=== PATIENT | female | born 1945 | race Caucasian/White ===

== ENCOUNTER 2017-02-13 15:02 | Inpatient (IN) | payer MEDICARE, OTHER ==
[~2017-02-13] VITALS: Ht 162.6 cm; Wt 53.1 kg
--- NOTE | ~2017-02-13 | CON ---
PATIENT'S NAME: KILO SANTILLAN [facility] AGE: 71 Y [address] ROOM: [place] [address] LOCATION: GICU ADMIT DATE: 02/13/2017 Consultation DISCHARGE DATE: FAMILY PHYSICIAN: Gloria Morton APRN ATTENDING PHYSICIAN: ANNA BILL REFERRING PHYSICIAN: Arun Patel MD Consult for Dr. Bill. This 71-year-old lady is referred for rehab/GIRP evaluation, admitted on 02/13/2017 with sudden onset of left-sided weakness with slurring of speech on the day that her while she was in the bathroom. She was evaluated at the local hospital. CT scan of the brain showed a large right-sided basal ganglia hemorrhage, intraparenchymal bleeding and repeated CT scan on admission here to hospital showed slight increase in the size of intracranial bleed, but without evidence of uncal herniation or brainstem compression. No intraventricular hemorrhage. Last CT scan of brain on 02/14/2017, showed stable right basal ganglia hemorrhage with slight increase in the effacement of right lateral ventricle in comparison to 02/13/2017 CT scan. Now, she can open her eyes to verbal command; however, she is immediately closing her eyes and going back to sleep, severely neglecting left side visual field. She has left facial droop. Tongue and soft palate are moving well; however, left side movement is slightly slower in tongue movement. Voice is clear and not wet at the present time, but slow in her response. As I mentioned, she is severely neglecting left side and always turns to the right side immediately. She is at the present time with vital signs that are stable, please refer to vital signs per nursing. She is with a Bhatt catheter. On intensive care unit and she is monitored closely. Chest is clear. Heart regular sinus rhythm. Abdomen soft. Urine output is clear at the present time. She has also numbness and complete flaccid left upper and lower extremities. PATIENT'S NAME: KILO SANTILLAN [facility] AGE: 71 Y [address] ROOM: [place] [address] LOCATION: [facility] ADMIT DATE: 02/13/2017 Consultation DISCHARGE DATE: FAMILY PHYSICIAN: Gloria Morton APRN ATTENDING PHYSICIAN: ANNA BILL MEDS: She is on the following medications. 1. NaCl 0.9%. 2. Protonix. 3. Albuterol. 4. Mannitol 20% q.4 hours 500 mL. 5. Apresoline. 6. Lipitor. 7. Tylenol. 8. KCl. ASSESSMENT AND PLAN: We will continue her on PT, OT, speech, please see the orders and we will brace her as necessary. We will do electrical stimulation as necessary for specific a muscle groups, and at the present time, she will be on bedside therapy. I will follow on her regularly, and when stable, provided she is okayed by the admitting surgeon, I will be happy to take her for intensive rehabilitation for about 4 weeks or so aiming to discharge home at modified independence. All the above was explained to her daughter and her grandson. They verbalized understanding and agreement. Thank you for this referral. I will be following alongside with you. MD GUERA PICKARD/modl /[id number] d: 02/15/17 1849 t: 02/16/17 0808, CONSULTATION REPORT
--- NOTE | ~2017-02-13 | HP ---
[facility] 71 Y [address] ROOM: [place] [address] LOCATION: [facility] ADMIT DATE: 02/13/2017 History & Physical DISCHARGE DATE: FAMILY PHYSICIAN: PHYSICIAN, UNKNOWN ATTENDING PHYSICIAN: ANNA CARL DATE OF SERVICE: 02/13/2017 CHIEF COMPLAINT: Right basal ganglia intraparenchymal hemorrhage, left-sided weakness. HISTORY OF PRESENT ILLNESS: The patient is a 71-year-old female, who unfortunately lost her today, was found by her family in the bathroom to have slurred speech and left-sided weakness. S was called and the patient was taken to [facility] where she was stabilized and investigated. Noncontrast CT of the head revealed large right basal ganglia intraparenchymal hemorrhage. I was contacted and discussed the case with Dr. Wise. I recommended transferring the patient over for further investigations, observation, and possible surgical intervention. I also recommended intubating the patient for the transfer. I met the patient in the intensive care unit. The patient was intubated and partially sedated. The history was confirmed from the referral papers. The rest of the history of present illness is limited due to the patient's intubation and sedation. PAST MEDICAL AND SURGICAL HISTORY: Unobtainable given the patient's level of consciousness. MEDICATIONS: Unobtainable given the patient's intubation and level of consciousness. ALLERGIES: UNKNOWN. REVIEW OF SYSTEMS: Unobtainable given the patient's intubation and level of consciousness. FAMILY HISTORY: Unobtainable given the patient's level of consciousness. SOCIAL HISTORY: The patient lives in [place]. PATIENT'S NAME: KILO SANTILLAN [facility] AGE: 71 Y [address] ROOM: [place] [address] LOCATION: [facility] ADMIT DATE: 02/13/2017 History & Physical DISCHARGE DATE: FAMILY PHYSICIAN: PHYSICIAN, UNKNOWN ATTENDING PHYSICIAN: ANNA CARL PHYSICAL EXAMINATION: GENERAL: The patient was intubated and partially sedated. She was examined in the intensive care unit. VITAL SIGNS: Systolic blood pressure was less than 150. HEENT: Head, no signs of external head trauma. Pupils were 3 mm and reactive. Sclera examination was normal. NECK: No palpable masses. GAIT: Not done. NEUROLOGIC: The patient was intubated and partially sedated. There was no eye opening to verbal or painful stimulus. The patient was spontaneously moving the right upper and lower extremities. She also obeyed simple commands on the right hand and foot. She had dense left arm and leg weakness. The pupils were 3 mm and reactive. RESPIRATORY: The patient was ventilated. CARDIOVASCULAR: She had palpable pulses on the upper extremities. INVESTIGATIONS: Noncontrast CT of the head done in [place] at 01:45 p.m. It showed evidence of large right basal ganglia intraparenchymal hemorrhage measuring about 5 x 2 cm. The hemorrhage is causing mass effect on the ipsilateral lateral ventricle and the sylvian fissure. The basal cisterns are patent. No evidence of intraventricular hemorrhage. Noncontrast CT of the head repeated at our hospital on the patient's arrival. It showed slight increase in the size of the hemorrhage, but without evidence of uncal herniation or brainstem compression. No evidence of intraventricular hemorrhage. The patient has generalized brain atrophy involving the frontal and parietal lobes with very large subarachnoid spaces. IMPRESSION: This 71-year-old female patient has right basal ganglia intraparenchymal hemorrhage. Based on the location of the hemorrhage, patient's age, this hemorrhage is most likely hypertension related. The patient's imaging showed large basal ganglia hemorrhage, but with no evidence of uncal herniation or intraventricular hemorrhage. There is minimal right to left midline shift. The patient's neurological examination is limited due to sedation, but she obeyed commands on the right upper and lower extremities and the pupils were equal and reactive. PLAN: 1. Admission to the intensive care unit. 2. Involvement of neuro fruit loader machine operator for medical management. 3. Repeat noncontrast CT of the head on February 14, 2017, to reassess the hemorrhage. 4. Control blood pressure, systolic blood pressure less than 150. PATIENT'S NAME: KILO SANTILLAN [facility] AGE: 71 Y [address] ROOM: [id number] [place], [place] [address] LOCATION: [facility] ADMIT DATE: 02/13/2017 History & Physical DISCHARGE DATE: FAMILY PHYSICIAN: PHYSICIAN, UNKNOWN ATTENDING PHYSICIAN: ANNA CARL 5. Keep the sodium within normal limit. I discussed the situation with the neuro fruit loader machine operator and the patient's son (Madan) and the patient's daughter (Michelle). I discussed the imaging, the patient's neurological examination. I also discussed the natural history of basal ganglia hemorrhages. I clearly indicated that given the significant brain atrophy and the absence of uncal herniation and the reassuring physical examination, surgical intervention is not required at this point. I recommended medical management for now. I clearly indicated that repeat imaging will be done tomorrow and after a few days. If the patient's neurological examination changes and the imaging shows significant edema and brainstem compression, then surgical evacuation will be an option. I also discussed long-term treatment post intracerebral hemorrhages. I clearly indicated that the patient will require inpatient rehab and probably prison upon discharge. The family understood those concerns and treatment plan. They were agreeable on that. They asked appropriate questions and those were answered to their satisfaction. It was a pleasure taking care of this patient and thanks for having us involved. MD GRADY CARL/adam /[id number] CC: Steffanie Wise MD [facility] [address] [place] [address] D: [id number] T: 040 HISTORY & PHYSICAL
--- NOTE | ~2017-02-13 | ENPV ---
Vascular Lower Extremities DVT Study Procedure Demographics Patient Name KILO SANTILLAN Date of Study 02/15/2017 Patient Number [id number] Gender Female Date of 1945 Age 71 Visit Number [id number] Height Accession Number [id number] Weight Room Number G6213 BSA BMI Referring Amanda Wood MD Interpreting Luis Casarez MD Physician Physician Physician Ordering Physician Court Reporter Waterproofer Helper Mable Cooper [facility] Conclusions Summary Bilaterally Negative for DVT Procedure Type of Study: Veins:Lower Extremities DVT Study, Venous Duplex Lower Extremity Bilateral. Appropriate Use Criteria:7 Patient Status:Routine. Technical Quality:Adequate visualization. Velocities are measured in cm/s ; Diameters are measured in cm Right Lower Extremities DVT Study Measurements Right 2D and Doppler Measurements + + + + +------+------+ + !Location !Visualized!Compressibility!Thrombosis!Signal!Reflux!Reflux ! ! ! ! ! ! ! !(sec) ! + + + + +------+------+ + !GSV Thigh !Yes !Yes !None !Phasic!No ! ! + + + + +------+------+ + !Common !Yes !Yes !None !Phasic!No ! ! !Femoral ! ! ! ! ! ! ! + + + + +------+------+ + !Prox !Yes !Yes !None !Phasic!No ! ! !Femoral ! ! ! ! ! ! ! + + + + +------+------+ + !Mid Femoral!Yes !Yes !None !Phasic!No ! ! + + + + +------+------+ + !Dist !Yes !Yes !None !Phasic!No ! ! !Femoral ! ! ! ! ! ! ! + + + + +------+------+ + !Popliteal !Yes !Yes !None !Phasic!No ! ! + + + + +------+------+ + !Gastroc !Yes !Yes !None !Phasic!No ! ! + + + + +------+------+ + !PTV !Yes !Yes !None !Phasic!No ! ! + + + + +------+------+ + !Peroneal !Yes !Yes !None !Phasic!No ! ! + + + + +------+------+ + Left Lower Extremities DVT Study Measurements Left 2D and Doppler Measurements + + + + +------+------+ + !Location !Visualized!Compressibility!Thrombosis!Signal!Reflux!Reflux ! ! ! ! ! ! ! !(sec) ! + + + + +------+------+ + !GSV Thigh !Yes !Yes !None !Phasic!No ! ! + + + + +------+------+ + !Common !Yes !Yes !None !Phasic!No ! ! !Femoral ! ! ! ! ! ! ! + + + + +------+------+ + !Prox !Yes !Yes !None !Phasic!No ! ! !Femoral ! ! ! ! ! ! ! + + + + +------+------+ + !Mid Femoral!Yes !Yes !None !Phasic!No ! ! + + + + +------+------+ + !Dist !Yes !Yes !None !Phasic!No ! ! !Femoral ! ! ! ! ! ! ! + + + + +------+------+ + !Popliteal !Yes !Yes !None !Phasic!No ! ! + + + + +------+------+ + !Gastroc !Yes !Yes !None !Phasic!No ! ! + + + + +------+------+ + !PTV !Yes !Yes !None !Phasic!No ! ! + + + + +------+------+ + !Peroneal !Yes !Yes !None !Phasic!No ! ! + + + + +------+------+ + Impressions Right Impression Negative for DVT Left Impression Negative for DVT Signature dtt: GREER MUIR dtd: 02/15/17 0752 Physician Self Edradhika
--- NOTE | ~2017-02-13 | DS ---
PATIENT'S NAME: KILO SANTILLAN [facility] AGE: 72 Y [address] ROOM: [address] [address] LOCATION: [facility] ADMIT DATE: 02/13/2017 Discharge Summary DISCHARGE DATE: 02/24/2017 FAMILY PHYSICIAN: Gloria Morton APRN ATTENDING PHYSICIAN: Yousuf Bill ADMISSION MAIN DIAGNOSES: 1. Right basal ganglia hemorrhage. 2. Left-sided weakness. DISCHARGE MAIN DIAGNOSES: 1. Right basal ganglia hemorrhage. 2. Left-sided weakness. PROCEDURES DURING ADMISSION: None. COMPLICATION DURING ADMISSION: None. DISCHARGE INSTRUCTIONS AND FOLLOWUP APPOINTMENTS: 1. The patient will be transferred to inpatient rehab to continue physical therapy, occupational therapy, and speech therapy. 2. Call my office for any new neurologic symptoms/deficits. 3. Call my office to schedule an appointment prior to discharge from rehab. MEDICATIONS ON DISCHARGE: 1. Amlodipine 2.5 mg p.o. once daily. 2. Lovenox 30 mg subcu once daily. 3. Protonix 40 mg p.o. once daily. 4. Nystatin one million units p.o. four times a day. 5. [place] 5/325 one tab p.o. every 6 hours p.r.n. 6. Multivitamin mineral one tablet p.o. once daily. 7. Calcium with vitamin D ER tab one tab once daily p.o. 8. Vitamin B12, 1000 mcg p.o. once daily. HOSPITAL COURSE: The patient is a 72-year-old female patient, who was admitted to the hospital with main diagnosis of right basal ganglia hemorrhage. The patient is known to have hypertension. The patient was initially admitted to the intensive care unit. She was initially intubated and subsequently was extubated. The patient remained neurologically very well. The left-sided weakness slowly improved. The patient was followed by hospitalist for medical management. Her blood pressure was fairly controlled. The patient had a multiple followup noncontrast CT head, and those showed evolution of the right basal ganglia hemorrhage and no evidence of intraventricular hemorrhage or other hemorrhages. The patient was also seen by Physical Therapy, Occupational Therapy, and Physiatry. It was felt that this patient would benefit from inpatient rehab. PATIENT'S NAME: KILO SANTILLAN [facility] AGE: 72 Y [address] ROOM: [address] [address] LOCATION: [facility] ADMIT DATE: 02/13/2017 Discharge Summary DISCHARGE DATE: FAMILY PHYSICIAN: Gloria Morton APRN ATTENDING PHYSICIAN: Yousuf Bill On the day of discharge, the patient was examined. She remained neurologically well. The left-sided weakness was slowly improving. She was alert and oriented. I met the patient in the in the presence of her daughter. They both asked appropriate questions and those were answered to their satisfaction. The patient will be transferred to inpatient rehab today. MD GRADY CARL/adam /[id number] CC: MELVINA Aranda MD Jesse J Pandorf, MD W.M. Suleiman, MD d: 02/24/17 0351 t: 02/24/17 1134, DISCHARGE SUMMARY
--- NOTE | ~2017-02-13 | CON ---
PATIENT'S NAME: KILO SANTILLAN [facility] AGE: 71 Y [address] ROOM: [address] [place], [place] [address] LOCATION: GICU ADMIT DATE: 02/13/2017 Consultation DISCHARGE DATE: FAMILY PHYSICIAN: Gloria Morton APRN ATTENDING PHYSICIAN: ANNA CARL DATE OF CONSULTATION: 02/16/2017 REFERRING PHYSICIAN: Arun Patel MD CHIEF COMPLAINT/REASON FOR CONSULTATION: Medical management in the setting of right basal ganglia hemorrhage. HISTORY OF PRESENTING ILLNESS: This 71-year-old white female with previous history of tobacco use, but no other significant medical history, was admitted to [facility] on 02/13/2017 after being discovered by family, poorly responsive. She had apparently suffered the loss of her on the same day. She was taken to the [place] [facility] where imaging studies revealed the presence of a right basal ganglia hemorrhage. Neurosurgery was consulted by telephone, and she was transferred here for definitive evaluation and management. She was intubated, mechanically ventilated, and managed by the neurosurgical and neuro-intensive services. It was recommended for conservative care and careful blood pressure management. She did receive mannitol and p.r.n. hydralazine and labetalol. Ultimately, she was extubated, and her clinical condition has improved. She does have residual left-sided facial droop and left-sided arm and leg weakness. She has been receiving speech therapy evaluation and physical therapy and occupational therapy evaluations as of today. She has also been started on some oral antihypertensive therapy. Presently, she reports feeling "okay." She is drowsy, but arousable and able to answer questions appropriately. She did have some nausea after the amlodipine was started, and her grandson was concerned about that. She does not have any significant nausea now. She denies headache. Denies dizziness or lightheadedness. No significant chest pain, and denies feeling short of breath. She did stool earlier today and has been making adequate amounts of urine. She denies numbness or tingling in her extremities, but does notice weakness on her left side. She also has some visual field deficit on the left side. PAST MEDICAL HISTORY: ALLERGIES: NO KNOWN DRUG ALLERGIES. ILLNESSES: PATIENT'S NAME: KILO SANTILLAN [facility] AGE: 71 Y [address] ROOM: [id number] [place], [place] [address] LOCATION: [facility] ADMIT DATE: 02/13/2017 Consultation DISCHARGE DATE: FAMILY PHYSICIAN: Gloria Morton APRN ATTENDING PHYSICIAN: ANNA CARL Tobacco use. CURRENT MEDICATIONS: 1. Amlodipine 2.5 mg p.o. daily. 2. [place] 5/325 one tablet p.o. q.6 hours p.r.n. 3. Protonix 40 mg IV q.24 hours. 4. Hydralazine 10 mg IV q.2 hours p.r.n. systolic greater than 150. 5. Labetalol 5 to 10 mg IV q.10 minutes p.r.n. systolic greater than 150. 6. Acetaminophen 650 mg p.o. or p.r. q.4 hours p.r.n. pain or fever. FAMILY HISTORY: Negative for heart attack or stroke. SOCIAL HISTORY: She is recently . She lives in [facility]. She has a son and daughter who live in [place] and provide some social assistance. She does have a history of intermittent tobacco use, 5- to 10- pack-year history. Occasional alcohol use. REVIEW OF SYSTEMS: As per HPI. All other organ systems reviewed and are negative. PHYSICAL EXAMINATION: VITAL SIGNS: Temperature 97.9, pulse 71, respirations 21, blood pressure 138/50, and O2 saturation 94% on room air. Weight is 48.1 kg. GENERAL: She is frail, but not ill-appearing. Lying in the bed. Somnolent, but arousable. In no acute distress. She is oriented x2 (not oriented to time). SKIN: Supple, pink, warm, and dry. No obvious rashes. HEENT: Otherwise, normocephalic. Sclerae are nonicteric. Pupils equal and round, slow to react to light. Extraocular movements demonstrate left-sided neglect. Oropharynx is clear. Mucous membranes are pink and moist. NECK: Supple. No masses or adenopathy. No thyromegaly. No JVD. CHEST WALL: Symmetrical. HEART: Regular with occasional extrasystoles. There is a grade 1 to 2 out of 6 systolic ejection murmur. LUNGS: Diminished at the bases with long expiratory phase. No christa wheezes. No areas of consolidation. ABDOMEN: Soft and nontender. Bowel sounds present. No masses or hepatosplenomegaly. GENITOURINARY: Not done. RECTAL: Not done. EXTREMITIES: Display no significant clubbing, cyanosis, or edema. NEUROLOGICAL: Cranial nerves 2 through 12 demonstrate left-sided visual neglect as described above. There is a left facial droop. Strength is 4/5 in PATIENT'S NAME: KILO SANTILLAN [facility] AGE: 71 Y [address] ROOM: [address] [place], [place] [address] LOCATION: [facility] ADMIT DATE: 02/13/2017 Consultation DISCHARGE DATE: FAMILY PHYSICIAN: Gloria Morton APRN ATTENDING PHYSICIAN: ANNA CARL the right upper and right lower extremities, 3/5 in the left upper and left lower extremities. DTRs 0 to 1+ on the right and 1+ on the left. Sensation appears intact. Gait is not observed. LABORATORY AND X-RAY DATA: CBC showed a white blood cell count of 9.0, hemoglobin is 10.8, hematocrit 32.1, and platelets 174. Chemistries revealed BUN and creatinine 12 and 0.5 respectively, sodium and potassium 137 and 3.4, chloride and CO2 were 106 and 22, calcium was 8.2. AST and ALT 24 and 20 respectively. Bilirubin was 0.3. Glucose was minimally abnormal at 105. Albumin was a little low at 3.1. Chest x-ray showed no acute cardiopulmonary abnormalities. CT scan on 02/14/2017 showed a right basal ganglia hemorrhage, stable from prior. ASSESSMENT AND PLAN: 1. Essential hypertension, controlled on amlodipine. Plan to continue with the oral amlodipine and careful fluid volume management. We will aim for goal systolic blood pressure less than 150 and close clinical followup. 2. Hypokalemia. We will replace with some enteral potassium today. 3. Dysphagia. Continue to work with speech therapy. 4. Moderate protein-calorie malnutrition. We will try to advance her diet carefully and encourage balanced intake. 5. Right basal ganglia hemorrhage with dysphagia, left-sided neglect, and left-sided arm and leg weakness. Plan to continue with physical therapy, occupational therapy, and restorative cares. The goal will be to go to rehab for an extended period. 6. Acute grief reaction. We will need to monitor this closely. It is difficult to assess in the current setting. She might benefit from SSRI therapy. Encourage close spiritual and emotional support by family and friends. 7. Tobacco use. Currently, no concerns. We will offer nicotine supplementation if she desires. 8. Deep venous thrombosis prophylaxis. We will use pneumatic compression devices, but hold off on heparin or Lovenox in light of the intracranial hemorrhage as above. MD SILVIA CLAYTON/adam /[id number] d: 02/16/171421 t: 02/16/171957, CONSULTATION REPORT
--- NOTE | ~2017-02-13 | CON ---
PATIENT'S NAME: KILO [facility] AGE: 71 Y [address] ROOM: [place] [address] LOCATION: GICU ADMIT DATE: 02/13/2017 Consultation DISCHARGE DATE: FAMILY PHYSICIAN: PHYSICIAN, UNKNOWN ATTENDING PHYSICIAN: ANNA BILL DATE OF CONSULTATION: 02/13/2017 REFERRING PHYSICIAN: Mayur Patel MD CHIEF COMPLAINT: Intensive management for a right basal ganglia, hemorrhagic bleed. HISTORY OF PRESENT ILLNESS: The patient presented this morning at [place] with altered mental status and weakness on her left side. Apparently, went into the bathroom about 11 o'clock and about an hour later, family came to check on her. Needed some help and had fallen. Could not get up. On EMS arrival, the patient had alert speech with facial droop on the left, left arm paralysis, and left leg weakness. She had a right gaze deviation. She was taken to the emergency room in [place] and was found to have this hemorrhagic stroke and was then transferred to [facility]. Also, this morning, her and this was following a week plus ICU stay in [place] with pneumonia, I believe to be associated with his chemotherapy for lung cancer. PAST MEDICAL HISTORY: Taken from the family and they are not aware of any medications or illnesses or surgeries that she has had. SOCIAL HISTORY: She has some occasional smoking and drinking. She is retired and lived independently at home. ALLERGIES: NONE. REVIEW OF SYSTEMS: Unobtainable. PHYSICAL EXAMINATION: VITAL SIGNS: Blood pressure is 114/60, heart rate was 72, oxygenation is 100%. GENERAL: She is intubated, responsive, in bed. HEAD: Normocephalic, atraumatic. Pupils were equal, reactive to light. NECK: Trachea is midline. PATIENT'S NAME: KILO SANTILL[facility] AGE: 71 Y [address] ROOM: [address] [address] LOCATION: GICU ADMIT DATE: 02/13/2017 Consultation DISCHARGE DATE: FAMILY PHYSICIAN: PHYSICIAN, UNKNOWN ATTENDING PHYSICIAN: ANNA BILL CHEST: Clear to auscultation bilaterally. Regular rate and rhythm. ABDOMEN: Soft, nondistended, and positive bowel sounds x4 quadrants. EXTREMITIES: No clubbing, cyanosis, or edema was noted. SKIN: Appeared to be intact. NEUROLOGIC: She followed commands on the right side, unable to follow commands on the left. She is able to nod her head, cough, gag. Is midline. LABORATORY DATA: Fairly unremarkable with hemoglobin 13, hematocrit 41. Sodium was 133, potassium 4, creatinine 7. The platelets 240, glucose in [place] that was 142. RADIOLOGY: Showed a 5 x 2.5 cm parenchymal hemorrhage in the right basal ganglia, most consistent with a hemorrhagic stroke. The repeat scan done at [facility] showed one that was slightly larger. ASSESSMENT: A 71-year-old female with a right basal ganglia, hemorrhage bleed. The patient has no other past medical history that we are aware of. PLAN: Going to recheck a head CT in the a.m. for any changes or any acute neuro status changes. Dr. Bill discussed conservative management versus operative care with the family and at this point, we are going to go with medical management. 1. Blood pressure control. Use labetalol and hydralazine at this point to maintain a systolic blood pressure less than 150. 2. Acute respiratory failure. Apparently, her GCS in [place] was about 10. They put in an ET tube for transport. She follows commands. Had a vital capacity of 1550. NIF negative 26, positive good cough, good NIF. So we will exacerbate the patient. 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 3. Mildly hyponatremic. We are going to recheck the labs. I will give her a 150 mg of 3% sodium chloride. 4. Hyperglycemia. She has no history of diabetes. We will check another blood sugar at a sliding scale as needed. This could just be a stress response in [place]. 5. Prophylaxis. Start a proton pump inhibitor. Have sequential compression devices, TEDs. There is no anticoagulation at this time. She will be in bed rest with the head up about 30 degrees. Discussed treatment options with the family at the bedside. All questions answered and addressed. Did say that there could be more bleeding. There could have worsening of secondary injury that may require surgery or re-intubation in the future. Discussed the DNR/DNI status and any options of living will. PATIENT'S NAME: KILO [facility]ILL[facility] AGE: 71 Y [address] ROOM: [id number] [place] [id number] LOCATION: [facility] ADMIT DATE: 02/13/2017 Consultation DISCHARGE DATE: FAMILY PHYSICIAN: PHYSICIAN, UNKNOWN ATTENDING PHYSICIAN: ANNA BILL Family was uncertain of any of her wishes at this time and will re-evaluate and back to us regarding this if needed in the future. Critical care time at bedside and discussion with family was approximately 75 minutes. MAYUR PATEL MD JJP/modl /[id number] d: 02/14/17 0001 t: 02/18/17 1218, CONSULTATION REPORT
--- NOTE | 2017-02-13 17:18 | NUR ---
Patient direct admit from [facility], ICU nursing staff & RT met flight in [place]. Patient flaccid on the left side, purposeful and follows commands to R) upper and lower ext. Pupils equal and reactive. SR-mirta, we are to keep SBP <150, has been 130-170s. Remains on A/C, FiO2 40%, lung sounds slightly coarse throughout. Bowels hypoactive, OG LIS. Hbatt patent. PIV x2, R)FA and R)AC. Dr Bill at bedside upon arrival to ICU, plans for CT in AM and will reassess possible need for evac
--- NOTE | 2017-02-14 05:34 | NUR ---
Significant Event: Pt is drowsy, but is easily arousable. Oriented x3. Pupils are equal and reactive. L) sided facial droop. NIHSS score of 15. Moves R) upper and lower extremity spontaneously and to command. L) lower extremity able to wiggle toes. Able to lift the L) upper extremity does not wiggle fingers. Extubated at 1805, and is now on room air. Bhatt cath in place with adequate urine output. No BM this shift. [address] Follow up: Continue to monitor Neuro status. CT at 1000 today.
[2017-02-14 06:04] LABS: BASOPHIL % 0.5 %; EOSINOPHIL # 0.1 K/uL (0.0-0.5); EOSINOPHIL % 0.9 %; HEMATOCRIT 34.4 % (33.0-46.0); HEMOGLOBIN 11.6 g/dL (10.0-15.0); IMMATURE GRANULOCYTE % 0.4 %; LYMPHOCYTE # 2.1 K/uL (0.8-4.0); LYMPHOCYTE % 24.2 %; MCH 32.6 pg (27.0-34.0); MCHC 33.7 gm/dL (32.0-36.5); MCV 96.6 fl (83.0-98.0); MONOCYTE # 1.1 K/uL (0.0-1.0); MONOCYTE % 12.5 %; MPV 9.9 fl (9.4-12.4); NEUTROPHIL # (ANC) 5.2 K/uL (1.8-7.8); NEUTROPHIL % 61.5 %; NRBC % 0 /100WBC (0-0.00); PLATELET COUNT 207 K/uL (150-450); RBC 3.56 M/uL (3.50-5.50); RDW-CV 12.2 % (11.9-14.6); WBC 8.5 K/uL (4.0-11.0)
[2017-02-14 06:24] LABS: ALBUMIN 3.3 gm/dL (3.5-5.0); ALK PHOS 50 IU/L (33-138); ALT 20 IU/L (12-78); ANION GAP 10.6 (10.0-19.0); AST 23 IU/L (10-40); BLOOD UREA NITROGEN 13 mg/dL (6-24); CALCIUM 8.4 mg/dL (8.5-10.5); CHLORIDE 107 mMol/L (96-110); CO2 26 mMol/L (22-32); CREATININE 0.6 mg/dL (0.5-1.1); ESTIMATED GFR (MDRD EQUATION) > 60; POTASSIUM 3.6 mMol/L (3.7-5.1); SODIUM 140 mMol/L (135-145); TOTAL BILIRUBIN 0.4 mg/dL (0.0-1.5); TOTAL PROTEIN 6.1 g/dL (6.0-8.4)
[2017-02-14] MEDS ORDERED: CALCIUM + D3 E1 EACH PO (10:00)
[2017-02-14] MEDS ORDERED: THERAGRAN-M1 TAB PO (10:00)
[2017-02-14] MEDS ORDERED: VITAMIN C500 M1 PO (10:01)
[2017-02-14] MEDS ORDERED: VITAMIN B-121000 MCG PO (10:01)
[2017-02-14] MEDS ORDERED: ALEVE220 MG PO (10:01)
[2017-02-14] MEDS ORDERED: FLONASE 50 MCG/16 GM NOSE (10:02)
[2017-02-14] MEDS ORDERED: ALAVERT10 MG PO (10:03)
--- NOTE | 2017-02-14 15:14 | NUR ---
Significant Event: Patient had a CT scan this shift. Remains unchanged from previous. No c/o pain/discomfort. UP to chair with 2 assist. MD wants patient to be ICU status with neuros every 2 hours today, and can transfer tomorrow if remains stable. PT/OT/SP thearpy today, plan for Dr. Sultana consult in AM. Bhatt draining yellow marignal urine. Follow up:
--- NOTE | 2017-02-15 04:48 | NUR ---
Significant Event: Patient AOx3. NIHSS 12. Improved throughout shift. Able to lift L)arm and leg off bed with drift. Follows commands without difficulty on R)extremeties. L)facial droop noted. L)neglect. Pupils equal and reactive. Speech slightly slurred. SR, BP stable labetolol given x2, hydralazine x1 for SBP >150. On room air. Bowel sounds active, no bm this shift. Bhatt intact, adequate UOP. No new or worsening skin issues. Stand and pivot well with 2A and gait belt. Afebrile. PIVx2 intact. Follow up: Status change?
[2017-02-15 05:27] LABS: BASOPHIL # 0.1 K/uL (0.0-0.2); BASOPHIL % 0.6 %; EOSINOPHIL # 0.1 K/uL (0.0-0.5); EOSINOPHIL % 1.1 %; HEMATOCRIT 34.8 % (33.0-46.0); IMMATURE GRANULOCYTE % 0.4 %; LYMPHOCYTE # 1.7 K/uL (0.8-4.0); LYMPHOCYTE % 20.6 %; MCH 33.1 pg (27.0-34.0); MCHC 34.5 gm/dL (32.0-36.5); MCV 96.1 fl (83.0-98.0); MONOCYTE # 0.8 K/uL (0.0-1.0); MONOCYTE % 9.7 %; NEUTROPHIL # (ANC) 5.6 K/uL (1.8-7.8); NEUTROPHIL % 67.6 %; NRBC % 0 /100WBC (0-0.00); PLATELET COUNT 195 K/uL (150-450); RBC 3.62 M/uL (3.50-5.50); RDW-CV 12.4 % (11.9-14.6); WBC 8.3 K/uL (4.0-11.0)
[2017-02-15 05:42] LABS: ALBUMIN 3.2 gm/dL (3.5-5.0); ALK PHOS 52 IU/L (33-138); ALT 20 IU/L (12-78); ANION GAP 11.2 (10.0-19.0); AST 22 IU/L (10-40); BLOOD UREA NITROGEN 12 mg/dL (6-24); CALCIUM 8.2 mg/dL (8.5-10.5); CHLORIDE 107 mMol/L (96-110); CO2 25 mMol/L (22-32); CREATININE 0.5 mg/dL (0.5-1.1); ESTIMATED GFR (MDRD EQUATION) > 60; POTASSIUM 3.2 mMol/L (3.7-5.1); SODIUM 140 mMol/L (135-145); TOTAL PROTEIN 6.2 g/dL (6.0-8.4)
[2017-02-15 05:44] LABS: TOTAL BILIRUBIN 0.3 mg/dL (0.0-1.5)
--- NOTE | 2017-02-15 17:35 | NUR ---
Significant Event: PT ALERT AND ORIENTED X3. PERRLA. NIH-SS WAS A 9 THIS SHIFT. HAS SOME EFFORT AGAINST GRAVITY TO L)ARM; ABLE TO RAISE L)LEG; L)FACIAL DROOP; L)SIDED NEGLECT. SPEECH SLIGHTLY SLURRED/MUMBLED. Q2H NEURO CHECKS-HAVE REMAINED STABLE ALL SHIFT. TRANSFERS WITH 2-ASSIST/HEAVY PIVOT. HAS BEEN UP IN THE CHAIR MOST OF THE DAY. TURN Q2H. BAG BATH GIVEN THIS MORNING. BRADYCARDIA AT TIMES WITH RATES IN THE 50'S. ORDER TO KEEP SBP <150. PRN IV HYDRALAZINE GIVEN AT 1504 AND PRN IV LABETOLOL GIVEN AT 1603. PO NORVASC STARTED TODAY. TAKES MEDICATIONS WHOLE WITH WATER. HAS COMPLAINED OF A SLIGHT R)TEMPORAL HEADACHE; 1 NORCO GIVEN AT 1504, WITH RELIEF. PUREED DIET WITH NECTAR THICKENED LIQUIDS; PT IS A 1:1 FEEDER AND DOES POCKET ON THE L)SIDE. ESPINOZA PATENT, DRAINING YELLOW URINE. XL FORMED BM PER COMMODE THIS AFTERNOON. IV TO R)FA INFUSING NS AT 70 ML/HR. K+ LEVEL WAS 3.2 THIS AM; 40 MEQ IV KCL X1 CURRENTLY INFUSING. FAMILY HAS BEEN AT BEDSIDE ALL SHIFT. Follow up: CHANGE TO NTU STATUS TOMORROW?
--- NOTE | 2017-02-16 05:13 | NUR ---
Oriented x3. No noteable increase in L) sided strength. Labetolol and Hydralazine pushes given during shift for SBP >150. Follow up: Continue with Speech, PT/OT
[2017-02-16 05:18] LABS: BASOPHIL % 0.2 %; EOSINOPHIL % 0.1 %; HEMATOCRIT 32.1 % (33.0-46.0); HEMOGLOBIN 10.8 g/dL (10.0-15.0); IMMATURE GRANULOCYTE % 0.3 %; LYMPHOCYTE # 1.7 K/uL (0.8-4.0); LYMPHOCYTE % 18.5 %; MCH 33.1 pg (27.0-34.0); MCHC 33.6 gm/dL (32.0-36.5); MCV 98.5 fl (83.0-98.0); MONOCYTE # 0.8 K/uL (0.0-1.0); MONOCYTE % 8.7 %; MPV 10.2 fl (9.4-12.4); NEUTROPHIL # (ANC) 6.5 K/uL (1.8-7.8); NEUTROPHIL % 72.2 %; NRBC % 0 /100WBC (0-0.00); PLATELET COUNT 174 K/uL (150-450); RBC 3.26 M/uL (3.50-5.50); RDW-CV 12.7 % (11.9-14.6)
[2017-02-16 05:29] LABS: ALBUMIN 3.1 gm/dL (3.5-5.0); ALK PHOS 46 IU/L (33-138); ALT 20 IU/L (12-78); ANION GAP 12.4 (10.0-19.0); AST 24 IU/L (10-40); BLOOD UREA NITROGEN 12 mg/dL (6-24); CALCIUM 8.2 mg/dL (8.5-10.5); CHLORIDE 106 mMol/L (96-110); CO2 22 mMol/L (22-32); CREATININE 0.5 mg/dL (0.5-1.1); ESTIMATED GFR (MDRD EQUATION) > 60; POTASSIUM 3.4 mMol/L (3.7-5.1); SODIUM 137 mMol/L (135-145); TOTAL BILIRUBIN 0.3 mg/dL (0.0-1.5); TOTAL PROTEIN 6.1 g/dL (6.0-8.4)
[2017-02-16 11:17] LABS: INR - (THERAPEUTIC) 1.01 (0.92-1.07); PROTIME 10.6 SECONDS (9.8-11.4)
[2017-02-16 12:26] LABS: BILIRUBIN URINE NEGATIVE (NEGATIVE); BLOOD URINE 50 /UL (NEGATIVE); COLOR URINE YELLOW (YELLOW); GLUCOSE URINE NEGATIVE (NEGATIVE); KETONE URINE 5 mg/dL (NEGATIVE); LEUKOCYTES URINE 25 /UL (NEGATIVE); NITRITE URINE NEGATIVE (NEGATIVE); PROTEIN URINE NEGATIVE (NEGATIVE); SPEC GRAVITY URINE 1.025 (1.003-1.035); TURBIDITY URINE CLEAR (CLEAR); UROBILINOGEN URINE NORMAL (NORMAL)
[2017-02-16 12:41] LABS: BACTERIA URINE RARE (NEGATIVE); EPITHELIAL URINE 0-2 #/HPF (NEGATIVE); MUCUS URINE 2+ (NEGATIVE)
--- NOTE | 2017-02-16 15:14 | NUR ---
Introduced self and role of care mangement to pt and her grandson Marlo, his mother is Michelle pt's daughter. Marlo stated pt lives up by [place] but doctors in [place] and her 3 kids are living there as well. I explained to pt and grandson that I can come back when more family is here but I assist with the dc plans when that time come and looking at rehab facilities and can look wherever pt would like from here, [facility] [place]. Marlo states his mom is coming later but he thinks they are wanting her to stay her for rehab. I will try to stop by when more family is here and left my name with Marlo. I did speak with Gilda regarding pt and thinks that she would be a good candiate.
--- NOTE | 2017-02-16 17:26 | NUR ---
Significant Event: Patient is alert and oriented X3. She answers all questions with a little delay and speech is slurred. She follows all commands correctly. She is still a lot weaker on the left side, but she made big improvements throughout the day. She is tolerating her pureed diet well and takes pills without any problems. NS continues at 70ml/hr and trying to get her to drink more water. Urine output was marginal. Follow up: Transfer to NTU
[2017-02-17 05:23] LABS: BASOPHIL # 0.1 K/uL (0.0-0.2); BASOPHIL % 0.7 %; EOSINOPHIL # 0.1 K/uL (0.0-0.5); EOSINOPHIL % 1.8 %; HEMATOCRIT 31.6 % (33.0-46.0); HEMOGLOBIN 10.7 g/dL (10.0-15.0); IMMATURE GRANULOCYTE % 0.4 %; LYMPHOCYTE # 2.1 K/uL (0.8-4.0); LYMPHOCYTE % 31.2 %; MCH 33.1 pg (27.0-34.0); MCHC 33.9 gm/dL (32.0-36.5); MCV 97.8 fl (83.0-98.0); MONOCYTE # 0.7 K/uL (0.0-1.0); MPV 10.1 fl (9.4-12.4); NEUTROPHIL # (ANC) 3.7 K/uL (1.8-7.8); NEUTROPHIL % 54.9 %; NRBC % 0 /100WBC (0-0.00); PLATELET COUNT 159 K/uL (150-450); RBC 3.23 M/uL (3.50-5.50); RDW-CV 12.6 % (11.9-14.6); WBC 6.7 K/uL (4.0-11.0)
--- NOTE | 2017-02-17 05:36 | NUR ---
patient is sleepy but easily awake,will follow simple commands,weakness on the lt side of the body with droop to lt side,clear upper lungs sound diminished on the bases,on room air rr=20,m0jcg=29% follow up:continue to monitor patient's neuro status closely,ct head on A.M
[2017-02-17 11:38] LABS: ALBUMIN 3.2 gm/dL (3.5-5.0); ALK PHOS 48 IU/L (33-138); ALT 23 IU/L (12-78); ANION GAP 12.8 (10.0-19.0); AST 25 IU/L (10-40); BLOOD UREA NITROGEN 11 mg/dL (6-24); CALCIUM 8.3 mg/dL (8.5-10.5); CHLORIDE 106 mMol/L (96-110); CO2 24 mMol/L (22-32); CREATININE 0.6 mg/dL (0.5-1.1); ESTIMATED GFR (MDRD EQUATION) > 60; POTASSIUM 3.8 mMol/L (3.7-5.1); SODIUM 139 mMol/L (135-145); TOTAL PROTEIN 6.4 g/dL (6.0-8.4)
[2017-02-17 11:41] LABS: TOTAL BILIRUBIN 0.5 mg/dL (0.0-1.5)
--- NOTE | 2017-02-17 14:34 | NUR ---
Introduced myself and role of care management this am to daughter Michelle and son and daughter in law. I did discuss regarding dc plans and rehab and what it was and entailed. I gave options of where I could look and daughter states there is not a place in [place]. I explained no they are only skilled care and explained acute rehab and 3 hours of therapy and I did stated they all can meet her needs the rehabs. I did tell them where [facility] was located and welcomed to go visit. They are wanting mom to stay here. I explained I am not sure when she will be ready but there are beds available. I did talk with Gilda and maybe thinking Wednesday but will touch base with her tomorrow and she may come over and visit family as well. WIll continue to follow.
--- NOTE | 2017-02-18 02:22 | NUR ---
patient arrived to unit at 1845 per bed accompanied by OPEN CUT EXAMINER Georgina and family. Patient is alert and oriented x3. No edema. Afebrile. Appetite is fair. Bowel are active-last Bm 02/16. Bhatt catheter. Skin-has small superficial open area to right upper buttocks. Vitals and neuro q4h. Follows commands. Left sided facial droop. Left sided weakness. Slurred speech. Puree diet with nectar thick liquids. 2A pivot or full lift. TQ2H. Left foot drop boot. PIV to left posterior FA with NA at 70. Monitor NA+ levels. Received report from ICU nurse Georgina. VSS. NIHSS-7.
[2017-02-18 05:31] LABS: ANION GAP 11.3 (10.0-19.0); BLOOD UREA NITROGEN 9 mg/dL (6-24); CALCIUM 7.9 mg/dL (8.5-10.5); CHLORIDE 108 mMol/L (96-110); CO2 23 mMol/L (22-32); CREATININE 0.4 mg/dL (0.5-1.1); ESTIMATED GFR (MDRD EQUATION) > 60; POTASSIUM 3.3 mMol/L (3.7-5.1); SODIUM 139 mMol/L (135-145)
--- NOTE | 2017-02-18 07:45 | NUR ---
Significant Event: PATIENT IS ALERT AND ORIENTED X3. FOLLOWS COMMANDS. DENIES JIMENEZ, PAIN, N/T. PERRLA. KEEP HOB GREATER THAN 30. L) FACIAL DROOP, L) SLIGHT HAND GRASP, L) LEG DRIFT AND WEAK. SINUS RHYTHM TO CATHERINE. 2+ PULSES-1+ EDEMA TO LEFT HAND. KEEP SBP LESS THAN 150. ROOM AIR-CLEAR. PUREE DIET WITH NECTAR THICKENED LIQUIDS. 1:1 FEEDER. 2A FULL LIFT OR PIVOT. R) FA WITH NS AT 70. TAKES PILLS ONE AT A TIME WITH THICKENED WATER. LAST BM 02/15-BOWELS ARE ACTIVE. ESPINOZA CATHETER-800 OUT. MONITOR SODIUM LEVELS-CALL BADER IF IT IS LESS THAN 135. L) FOOT DROP BOOT. TURN Q2H. Follow up: TO GIRP WHEN READY.
--- NOTE | 2017-02-18 09:08 | NUR ---
A - PT SCREENED D/T LOS. S/P STROKE. 1:1 @ MEALS. HT: 64" WT: 113# (02/18), 108# (02/17). BMI: 19.5. LABS: ACCUCHECK WNL, K+ 3.3, BUN/CR 9/0.4, ALB 3.2, PREALB 19. MEDS: PROTONIX, IVF. DIET: PUREED, NECTAR LIQUIDS. INTAKE: 25-50%. NEEDS: 0501-0038 KCAL (28-33 KCAL/KG), 51-61 G PRO (1-1.2 G/KG), 1530 ML FLUID (30 ML/KG) D - INADEQUATE NUTRIENT INTAKE R/T DECREASED APPETITE, DIFFICULTY CHEWING/SWALLOWING AEB INTAKE RECORD, NEED FOR ALTERED TEXTURE/CONSISTENCY. I - GOAL FOR INTAKE > 50% BY NEXT ASSESSMENT. WILL ADD ENSURE PUDDING BID AND MAGIC CUP @ L&D. M/E - WILL MONITOR INTAKE F/U IN 4-5 DAYS.
[2017-02-18 09:37] LABS: BASOPHIL # 0.1 K/uL (0.0-0.2); BASOPHIL % 0.7 %; EOSINOPHIL # 0.2 K/uL (0.0-0.5); EOSINOPHIL % 3.1 %; HEMATOCRIT 34.5 % (33.0-46.0); HEMOGLOBIN 11.8 g/dL (10.0-15.0); IMMATURE GRANULOCYTE % 0.3 %; LYMPHOCYTE # 1.8 K/uL (0.8-4.0); LYMPHOCYTE % 26.9 %; MCH 33.1 pg (27.0-34.0); MCHC 34.2 gm/dL (32.0-36.5); MCV 96.9 fl (83.0-98.0); MONOCYTE # 0.8 K/uL (0.0-1.0); MONOCYTE % 11.1 %; NEUTROPHIL # (ANC) 3.9 K/uL (1.8-7.8); NEUTROPHIL % 57.9 %; NRBC % 0 /100WBC (0-0.00); PLATELET COUNT 183 K/uL (150-450); RBC 3.56 M/uL (3.50-5.50); RDW-CV 12.1 % (11.9-14.6); WBC 6.8 K/uL (4.0-11.0)
[2017-02-18 10:02] LABS: ALK PHOS 46 IU/L (33-138); ALT 29 IU/L (12-78); ANION GAP 10.4 (10.0-19.0); AST 29 IU/L (10-40); BLOOD UREA NITROGEN 9 mg/dL (6-24); CALCIUM 8.3 mg/dL (8.5-10.5); CHLORIDE 106 mMol/L (96-110); CO2 25 mMol/L (22-32); CREATININE 0.6 mg/dL (0.5-1.1); ESTIMATED GFR (MDRD EQUATION) > 60; POTASSIUM 3.4 mMol/L (3.7-5.1); SODIUM 138 mMol/L (135-145); TOTAL BILIRUBIN 0.4 mg/dL (0.0-1.5); TOTAL PROTEIN 6.2 g/dL (6.0-8.4)
--- NOTE | 2017-02-18 12:48 | NUR ---
I did call and updated Gilda with [facility]. They will accept when ready and I did tell her per nursing Dr Bill stated next week. WIll continue to follow.
--- NOTE | 2017-02-18 17:27 | NUR ---
Significant Event:VSS, RSR. NIHSS 7, A/O x 3, recognizes family, follows commands, L side arm/leg drift, L hand grasp weaker than R. Able to dorsal/plantar flex feet. PEERL 3, L heminopia, eyes deviate to R. Pt worked on looking left, speech is slightly slurred. Up with lift/nursing. Bhatt cath Follow up:Monitor, continue with therapies
[2017-02-19 05:27] LABS: BASOPHIL % 0.5 %; EOSINOPHIL # 0.2 K/uL (0.0-0.5); EOSINOPHIL % 3.5 %; HEMATOCRIT 32.2 % (33.0-46.0); HEMOGLOBIN 11.2 g/dL (10.0-15.0); IMMATURE GRANULOCYTE % 0.2 %; LYMPHOCYTE # 1.5 K/uL (0.8-4.0); LYMPHOCYTE % 25.3 %; MCHC 34.8 gm/dL (32.0-36.5); MONOCYTE # 0.7 K/uL (0.0-1.0); NEUTROPHIL # (ANC) 3.4 K/uL (1.8-7.8); NEUTROPHIL % 58.5 %; NRBC % 0 /100WBC (0-0.00); PLATELET COUNT 178 K/uL (150-450); RBC 3.39 M/uL (3.50-5.50); RDW-CV 11.9 % (11.9-14.6); WBC 5.8 K/uL (4.0-11.0)
[2017-02-19 05:46] LABS: ALBUMIN 2.9 gm/dL (3.5-5.0); ALK PHOS 46 IU/L (33-138); ALT 27 IU/L (12-78); AST 28 IU/L (10-40); BLOOD UREA NITROGEN 7 mg/dL (6-24); CALCIUM 8.1 mg/dL (8.5-10.5); CHLORIDE 106 mMol/L (96-110); CO2 24 mMol/L (22-32); CREATININE 0.4 mg/dL (0.5-1.1); ESTIMATED GFR (MDRD EQUATION) > 60; SODIUM 140 mMol/L (135-145); TOTAL BILIRUBIN 0.4 mg/dL (0.0-1.5); TOTAL PROTEIN 5.8 g/dL (6.0-8.4)
--- NOTE | 2017-02-19 07:13 | NUR ---
Significant Event: PATIENT IS ALERT AND ORIENTED X3. FOLLOWS COMMANDS. DENIES JIMENEZ, PAIN, N/T. PERRLA. KEEP HOB GREATER THAN 30. L) FACIAL DROOP, L) SLIGHT HAND GRASP, L) LEG DRIFT AND WEAK. SINUS RHYTHM TO CATHERINE. 2+ PULSES-1+ EDEMA TO LEFT HAND. KEEP SBP LESS THAN 150. ROOM AIR-CLEAR. PUREE DIET WITH NECTAR THICKENED LIQUIDS. 1:1 FEEDER. 2A FULL LIFT OR PIVOT. R) FA WITH NS AT 70. TAKES PILLS ONE AT A TIME WITH THICKENED WATER. LAST BM 5/2-BOWELS ARE ACTIVE. ESPINOZA CATHETER-1050 OUT. MONITOR SODIUM LEVELS-CALL BADER IF IT IS LESS THAN 135. L) FOOT DROP BOOT. TURN Q2H. Follow up: TO GIR[facility] WHEN READY.
--- NOTE | 2017-02-19 11:00 | NUR ---
I did call Gilda with [facility] and can tent take on Wednesday if ok with md's. I did leave a note for Dr Bill. I spoke with pt again and another son and his and explained if everything is good and md thinks she is ready she can move over to our inpatient rehab. They all agreed along with the pt. WIll continue to follow. I did update nursing.
--- NOTE | 2017-02-19 16:36 | NUR ---
Significant Event:VSS, Apresoline 10mg x 2 IV for SBP 159-163, with good response. Current BP 150/65 at 1600. Pt denies headache. Drowsy, arouses easily. A/O x 3, recognizes family members. Speech is clear/soft most of time. NIHSS 5, left arm/leg remains weak, with drift, sensation dull, PEERLA, continues with L sided visual neglect. IVSL, christianson dc'd with void x 1. Ate meals at 25%, continues with poor appetite. Participated with therapies. Follow up:Monitor. Possible DC to Inpt Rehab on Wednesday, CT scan on 02/21/17
[2017-02-20 05:50] LABS: ALBUMIN 2.8 gm/dL (3.5-5.0); ALK PHOS 45 IU/L (33-138); ALT 24 IU/L (12-78); ANION GAP 11.6 (10.0-19.0); AST 23 IU/L (10-40); BLOOD UREA NITROGEN 8 mg/dL (6-24); CALCIUM 8.5 mg/dL (8.5-10.5); CHLORIDE 106 mMol/L (96-110); CO2 23 mMol/L (22-32); CREATININE 0.5 mg/dL (0.5-1.1); ESTIMATED GFR (MDRD EQUATION) > 60; POTASSIUM 3.6 mMol/L (3.7-5.1); SODIUM 137 mMol/L (135-145); TOTAL PROTEIN 5.8 g/dL (6.0-8.4)
[2017-02-20 05:51] LABS: TOTAL BILIRUBIN 0.3 mg/dL (0.0-1.5)
--- NOTE | 2017-02-20 07:22 | NUR ---
Significant Event: A&Ox3, VSS on room air. patient rested well this shift. up to BSC X3 with 2PA heavy assist/pivot. Repositioned Q2hrs. [place] given X2 for pain and "sleep". Soft spoken, NIHSS of 6. Left sided neclect and weakness. denies needs. Follow up:continue with plan of care.
--- NOTE | 2017-02-20 19:04 | NUR ---
Significant Event: Alert and oriented X 3. Room air. SBP 120's and 140's. HR 60's. 2 assist pivot transfer. IV right posterior arm, flushes well with good blood return. Stroke scale 7. Head deviates to the right, encourage to look straight and to the left. Meds given whole with nectar thick water. Pureed diet. Pleasant and cooperative with cares. Follow up: CT on Wednesday.
--- NOTE | 2017-02-21 04:56 | NUR ---
Significant Event: Patient is alert and oriented x3. Follows commands. VSS. Left facial droop. Left peripheral vision impairment. Left arm drift. PERRLA. NIH-6. Dullness to the left arm- the right hand is back to normal. SR to ST. Keep SBP less than 150. Slight edema to the left hand. Foot drop boot the left foot to be on at all times. Room air. Bowels are active x4-last BM 02/20. Puree diet with nectar thickened liqs. Incont of bowel and bladder at times. 2A pivot or full lift. Takes pills whole with water-encourage PO intake. Tq2h. PIV in R) post FA-sl'd. Follow up: Need urine osmo. CT of head this AM. GIRP Wednesday if ready.
[2017-02-21 04:59] LABS: ALBUMIN 2.9 gm/dL (3.5-5.0); ALK PHOS 48 IU/L (33-138); ALT 22 IU/L (12-78); ANION GAP 13.8 (10.0-19.0); AST 24 IU/L (10-40); BLOOD UREA NITROGEN 10 mg/dL (6-24); CALCIUM 8.6 mg/dL (8.5-10.5); CHLORIDE 105 mMol/L (96-110); CO2 25 mMol/L (22-32); CREATININE 0.5 mg/dL (0.5-1.1); ESTIMATED GFR (MDRD EQUATION) > 60; POTASSIUM 3.8 mMol/L (3.7-5.1); SODIUM 140 mMol/L (135-145); TOTAL BILIRUBIN 0.3 mg/dL (0.0-1.5)
--- NOTE | 2017-02-21 15:53 | NUR ---
ULTRA HIGH FALL RISK Significant Event: A/O X3, NIHSS=6, L)mouth droop, L)side weakness, dull to L)side. L)vision distortion. speech mumbled. L)foot drop boot, 2 assist/gait belt/pivot transfer to chair & BSC. 1:1 feeder-pureed diet/nectar thick liquids, R)FA saline lock, incontinent at times. Follow up: plan for GIR[facility] tomorrow
[2017-02-22 04:16] LABS: ALBUMIN 2.9 gm/dL (3.5-5.0); ALK PHOS 48 IU/L (33-138); ALT 22 IU/L (12-78); ANION GAP 12.3 (10.0-19.0); AST 21 IU/L (10-40); BLOOD UREA NITROGEN 8 mg/dL (6-24); CALCIUM 8.6 mg/dL (8.5-10.5); CHLORIDE 105 mMol/L (96-110); CO2 27 mMol/L (22-32); CREATININE 0.4 mg/dL (0.5-1.1); ESTIMATED GFR (MDRD EQUATION) > 60; POTASSIUM 3.3 mMol/L (3.7-5.1); SODIUM 141 mMol/L (135-145); TOTAL BILIRUBIN 0.3 mg/dL (0.0-1.5)
--- NOTE | 2017-02-22 04:29 | NUR ---
Significant Event: PATIENT IS ALERT AND ORIENTED X3. FOLLOWS COMMANDS. DENIES JIMENEZ, PAIN, OR BLURRED VISION. VSS. DOES HAVE A LEFT VISUAL DEFICIT. LEFT ARM DRIFT AND WEAK GRASP. SR-CATHERINE THIS SHIFT. ROOM AIR. LAST BM 02/21-ACTIVE X4. PUREE DIET-NECTAR THICKENED LIQ-TAKES PILLS WHOLE WITH WATER. ENCOURAGE PO INTAKE. 2A FULL LIFT- USES BSC AND BEDPAN. R) FA HERMAN-Bhavesh. Follow up: GIRP TODAY?
--- NOTE | 2017-02-22 14:07 | NUR ---
A - NUT F/U. LIQUIDS UPGRADED TO THIN TODAY. ENC PO INTAKE. 1:1 @ MEALS. ORAL THRUSH - NYSTATIN SWISH & SPIT. LABS: K+ 3.3, BUN/CR 8/0.4, ALB 2.9. MEDS: PROTONIX. BOWEL. DIET: PUREED. INTAKE: 25-100%, AVG 59% ENSURE PUDDING BID, MAGIC CUP @ L&D. NEEDS: 7314-1271 KCAL, 51-61 G PRO D - INADEQUATE NUTRIENT INTAKE AT TIMES R/T DECREASED APPETITE AEB INTAKE RECORD. I - GOAL FOR INTAKE TO MEET 50-100% OF NEEDS BY NEXT ASSESSMENT. WILL ADD ENSURE @ L M/E - WILL MONITOR INTAKE F/U IN 3-5 DAYS.
--- NOTE | 2017-02-22 14:53 | NUR ---
Talked with Gilda on [facility], they can accept pt tomorrow. Let pt and son know, they are agreeable. Let charge nurse know and put note on chart for physician.
--- NOTE | 2017-02-22 17:41 | NUR ---
ULTRA HIGH FALL RISK Significant Event: A/O X3, 2 assist/pivot/platform walker, NIHSS=6, L)sided dullness/weakness, L)mouth droop, 1:1 feeder, pureed/nectar thick liquids, incontinent of urine, L)vision deficit, up to chair, R)FA saline lock, family @ bedside. attempted to remove coating to tongue w/ tongue blade, nystatin swish/spit for thrush. Follow up: Plan for [facility] 9 am tomorrow
--- NOTE | 2017-02-23 01:43 | NUR ---
Significant Event: A/OX3. STATES DULLNESS TO LEFT SIDE. LEFT SIDE WEAKNESS AND FACIAL DROOP. STROKE SCALE OF 6. MOVES ALL EXTREMITIES SPONTANEOUSLY AND TO COMMAND. VSS ON ROOM AIR. HYDRALAZINE GIVEN X1 FOR SBP OF 154. UP 2 ASSIST WTIH PIVOT. TAKES MEDS WHOLE. PUREED DIET WITH THIN LIQUIDS. 1:1 FEEDER. IV TO RIGHT FOREARM SALINE LOCKED. SCDS INTACT. DENIES PAIN. THRUSH TO MOUTH. Follow up: [facility]IR[facility] AT 9AM TODAY.
[2017-02-23 04:31] LABS: ALBUMIN 2.9 gm/dL (3.5-5.0); ALK PHOS 48 IU/L (33-138); ALT 23 IU/L (12-78); ANION GAP 11.5 (10.0-19.0); AST 24 IU/L (10-40); BLOOD UREA NITROGEN 11 mg/dL (6-24); CALCIUM 8.7 mg/dL (8.5-10.5); CHLORIDE 106 mMol/L (96-110); CO2 26 mMol/L (22-32); CREATININE 0.5 mg/dL (0.5-1.1); ESTIMATED GFR (MDRD EQUATION) > 60; POTASSIUM 3.5 mMol/L (3.7-5.1); SODIUM 140 mMol/L (135-145); TOTAL BILIRUBIN 0.3 mg/dL (0.0-1.5); TOTAL PROTEIN 5.9 g/dL (6.0-8.4)
--- NOTE | 2017-02-23 09:27 | NUR ---
Gilda on [facility] called, pt got IV Hydralazine this morning and so they will have to wait another 24 hours before they can take to inpt rehab. Will plan tomorrow morning.
--- NOTE | 2017-02-23 12:21 | NUR ---
I spoke with Gilda and will plan tomorrow for rehab due to gettin one dose of iv hydralazine. I did update Dr Bill and per crys family is already aware. Will assist as needed.
--- NOTE | 2017-02-23 18:41 | NUR ---
Significant Event:Up in chair. 2 assist to commode. Left side flaccid. Left deviation noted. Left foot drags. Slurred speech. Left facial droop. Denies pain. VSS. Open area R) buttock. A/O x3. Voids frequently. Daughter at bedside. BM today. R) fa SL. Lost on day she had CVA. 1:1 feeder, takes pills 1 at a time. Follow up:GIRP tomorrow at 0900.
--- NOTE | 2017-02-24 04:10 | NUR ---
Significant Event: A/OX3. Denies tingling. Moves all extremities spontaneously and to command. States dullness to left side. Left side weakness. Left side facial droop. Left eye deviation, occasionally. Slurred speech. Stroke scale 6. VSS on room air. SBP ranged from 112-153. In Sinus rhythm to sinus mirta. Up 2 assit pivot to restroom, occasionally incontinent. Takes meds whole. Right forearm IV saline locked. Purreed diet with thin liquids. Thrush on tongue - has nystatin. 1:1 feeder. GIR[facility] today at 9am. Follow up:
[2017-02-24 04:35] LABS: ALK PHOS 45 IU/L (33-138); ALT 28 IU/L (12-78); ANION GAP 11.8 (10.0-19.0); AST 26 IU/L (10-40); BLOOD UREA NITROGEN 15 mg/dL (6-24); CALCIUM 8.7 mg/dL (8.5-10.5); CHLORIDE 106 mMol/L (96-110); CO2 26 mMol/L (22-32); CREATININE 0.5 mg/dL (0.5-1.1); ESTIMATED GFR (MDRD EQUATION) > 60; POTASSIUM 3.8 mMol/L (3.7-5.1); SODIUM 140 mMol/L (135-145); TOTAL BILIRUBIN 0.3 mg/dL (0.0-1.5); TOTAL PROTEIN 6.1 g/dL (6.0-8.4)
--- NOTE | 2017-02-24 08:35 | NUR ---
Pt is alert/orienated x 3. L sided facial droop, L arm/leg weaker than R side. Sensation is dull on L compared to R. L sided visual neglect. Speech clear/slow. Able to answer questions one word at time. Transfer with 2 assist, GB/Platform walker. Eats pureed diet with supervison. Thrush noted on tongue. Nystatin scheduled. Voids per BSC, last BM 02/23. Family very helpful with pt. Pt spouse 02/13/17. Tx to Rehab, report to RN.
== END 2017-02-24 09:43 | DRG 64 ==
LOC: GICU 15:02 → GNTU 02-17 18:57
PROVIDERS: Anesthesiology; Family Medicine; Internal Medicine; ADMIT Neurological Surgery
PROC: 5A1945Z Respiratory Ventilation, 24-96 Consecutive Hours (ICD-10-PCS; principal; 2017-02-13)
DX: I61.0 Nontraumatic intracerebral hemorrhage in hemisphere, subcortical (principal); J96.00 Acute respiratory failure, unspecified whether with hypoxia or hypercapnia; E44.0 Moderate protein-calorie malnutrition; B37.0 Candidal stomatitis; E87.1 Hypo-osmolality and hyponatremia; G81.04 Flaccid hemiplegia affecting left nondominant side; Z68.1 Body mass index [BMI] 19.9 or less, adult; R29.810 Facial weakness; I10 Essential (primary) hypertension; Z66 Do not resuscitate; R40.2422 Glasgow coma scale score 9-12, at arrival to emergency department; R73.9 Hyperglycemia, unspecified; Z72.0 Tobacco use; F43.0 Acute stress reaction; Z78.1 Physical restraint status; E87.6 Hypokalemia; Z23 Encounter for immunization; I69.291 Dysphagia following other nontraumatic intracranial hemorrhage; R13.10 Dysphagia, unspecified
CPT/HCPCS: C9113; G0009; J0360; J1650; J3480; J7030; J7040

== ENCOUNTER 2017-02-24 09:58 | Inpatient (IN) | payer MEDICARE, OTHER ==
[~2017-02-24] VITALS: Ht 162.6 cm; Wt 44.5 kg
--- NOTE | ~2017-02-24 | ENPV ---
Vascular Lower Extremities DVT Study Procedure Demographics Patient Name KILO SANTILLAN Date of Study 03/20/2017 Patient Number [id number] Gender Female Date of 1945 Age 72 Visit Number [id number] Height Accession Number [id number] Weight Room Number G3292 BSA BMI Referring Interpreting Skip Ireland MD Physician Physician Physician Ordering Physician Amanda Wood MD Agricultural Sciences Professor Lead Advisor Danuta Bowling [facility], RVT Mable Cooper [facility] Conclusions Summary TECHNIQUE: The veins of the lower extremity on the left were evaluated from the groin to the ankle using villavicencio scale, compression, augmentation. Venous hemodynamics were evaluated with color flow and spectral Doppler. FINDINGS: Normal venous duplex study of the left lower extremity. There is no evidence of deep or superficial venous thrombosis. The right common femoral vein was imaged as well and found to be negative. IMPRESSION: NEGATIVE LEFT LOWER EXTREMITY VENOUS DOPPLER. Procedure Type of Study: Veins:Lower Extremities DVT Study, Lower Extremity Left. Patient Status:Routine. Study Location:Inpatient Portable. Technical Quality:Adequate visualization. Velocities are measured in cm/s ; Diameters are measured in cm Right Lower Extremities DVT Study Measurements Right 2D and Doppler Measurements + + + + +------+------+ + !Location !Visualized!Compressibility!Thrombosis!Signal!Reflux!Reflux ! ! ! ! ! ! ! !(sec) ! + + + + +------+------+ + !Common !Yes !Yes !None !Phasic! ! ! !Femoral ! ! ! ! ! ! ! + + + + +------+------+ + Left Lower Extremities DVT Study Measurements Left 2D and Doppler Measurements + + + + +------+------+ + !Location !Visualized!Compressibility!Thrombosis!Signal!Reflux!Reflux ! ! ! ! ! ! ! !(sec) ! + + + + +------+------+ + !GSV Thigh !Yes !Yes !None !Phasic!No ! ! + + + + +------+------+ + !Common !Yes !Yes !None !Phasic!No ! ! !Femoral ! ! ! ! ! ! ! + + + + +------+------+ + !Prox !Yes !Yes !None !Phasic!No ! ! !Femoral ! ! ! ! ! ! ! + + + + +------+------+ + !Mid Femoral!Yes !Yes !None !Phasic!No ! ! + + + + +------+------+ + !Dist !Yes !Yes !None !Phasic!No ! ! !Femoral ! ! ! ! ! ! ! + + + + +------+------+ + !Popliteal !Yes !Yes !None !Phasic!No ! ! + + + + +------+------+ + !Gastroc !Yes !Yes !None !Phasic!No ! ! + + + + +------+------+ + !PTV !Yes !Yes !None !Phasic!No ! ! + + + + +------+------+ + !Peroneal !Yes !Yes !None !Phasic!No ! ! + + + + +------+------+ + Impressions Left Impression no dvt seen Signature dtt: dtd: 03/20/17 1032 Physician Self Edit
--- NOTE | ~2017-02-24 | CON ---
PATIENT'S NAME: NIMISHA SANTILLAN [facility] AGE: 72 Y [address] ROOM: [address] [address] LOCATION: [facility] ADMIT DATE: 02/24/2017 Consultation DISCHARGE DATE: FAMILY PHYSICIAN: Gloria Morton APRN ATTENDING PHYSICIAN: Roni Caro DATE OF CONSULTATION: 03/16/2017 REFERRING PHYSICIAN: Roni Caro MD Team members reporting include: Dr. Caro; Gilda Amaya, foster care social worker; Carley Barba, RN; Shazia Jenkins, PT; Erin Marin, PT; Jocelin Longoria, OT; Yessy Benavides, Speech Therapy; Kasey Peterson, therapeutic rec; and Sister Beth Carmona, Pastoral Care. CURRENT STATUS: Nimisha is a 72-year-old woman, admitted to our inpatient rehabilitation unit on 02/24/2017, following a CVA with left hemiplegia. The patient was found to have a UTI and was started on oral Ceftin. She is taking Imnaha for pain. She is on a regular diet. Intake is anywhere from 0 to 50%. Taking a Magic Cup every day, Ensure Clear every day, and Ensure pudding twice a day. Her prealbumin is 32 up from 30. The patient can transfer sit to supine and supine to sit, at minimal assistance; bed to chair and chair to bed, contact guard assistance to minimal assistance. She can ambulate 25 to 50 feet using a olaf-walker at [id number] assistance and she can climb 4 stairs at moderate assistance. The patient requires maximal cues. She complains of some pain and fatigue. The patient is able to dress her upper and lower body at minimal assistance; grooming, standby; bathing, contact guard assistance; toilet and shower transfers, minimal assistance; and feeding, standby assistance. The patient seems to be withdrawn on this date, has severe inattention, motor planning issues, and decreased sensation. She has met 0/5 short-term OT goals. The patient's language and expression is at standby assistance for verbal expression. Mod I for memory; standby assistance for problem solving, and standby assistance for swallow. She does complain of biting her upper lip, does not like E-stimulation. The patient has been very open to pastoral care. Continues to have left-sided neglect, complaints of pain. DISCHARGE PLAN: The patient is receiving 3 hours of PT, OT, and speech Wednesday through Wednesday. The patient has daily rehabilitation, nursing, and physiatry involvement as well as therapeutic recreational services 4 days per week. The patient has shown functional improvement and is progressing. Please see her plan of care for specific goals. Plan is for patient to discharge in approximately 3 weeks. The plan is for patient to discharge to a fci facility in [place], as patient will require 24-hour care. PATIENT'S NAME: NIMISHA SANTILLAN [facility] AGE: 72 Y [address] ROOM: [place] [address] LOCATION: [facility] ADMIT DATE: 02/24/2017 Consultation DISCHARGE DATE: FAMILY PHYSICIAN: Gloria Morton APRN ATTENDING PHYSICIAN: Roni Caro GILDA AMAYA FOR RONI CARO MD TD/modl /[id number] d: 03/29/17 1410 t: 04/13/17 0817, CONSULTATION REPORT
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
--- NOTE | ~2017-02-24 | CON ---
PATIENT'S NAME: NIMISHA SANTILLAN [facility] AGE: 72 Y [address] ROOM: [address] [address] LOCATION: [facility] ADMIT DATE: 02/24/2017 Consultation DISCHARGE DATE: 04/07/2017 FAMILY PHYSICIAN: Gloria Morton APRN ATTENDING PHYSICIAN: Roni Caro DATE OF CONSULTATION: 04/06/2017 REFERRING PHYSICIAN: Roni Caro MD Team members reporting include Dr. Caro; Gilda Amaya, social media assistant; Loly Anne, RN; Shazia Jenkins, PT; Erin Marin, PT; Jocelin Longoria, OT; Yessy Benavides, Speech Therapy; Kasey Peterson, therapeutic rec; and Sister Beth Carmona, [facility] Care. CURRENT STATUS: Nimisha is a 72-year-old woman admitted to our inpatient rehab unit following a CVA. She continues to be on a fluid restriction. She is on a regular diet with a 1200 mL fluid restriction. She takes Ensure Clear daily, magic Cup twice a day, and Ensure Pudding twice a day. Prealbumin is 26. She can transfer sit to supine and supine to sit at standby with cues needed; sit to stand, standby assistance with cues; and bed to chair and chair to bed, standby to contact guard assistance. She can walk 150 to 200 feet with minimal to contact guard assistance. Walking is still not a fluid task yet. She can climb 4 stairs at contact guard assistance going up and down. She can negotiate a curb at minimal assistance. She does still occasionally catch her toe. She has met 0/9 long-term PT goals and 4/5 short-term PT goals. The patient can dress her upper body at minimal assistance with good olaf- techniques. She can dress her lower body with minimal assistance. Assistance needed for balance. Grooming is standby assistance; bathing, minimal assistance for balance only; toilet transfers, minimal assistance using a scoot technique; and she is minimal assistance for toileting. She can feed herself stand-by assistance. Left arm is improving. She has met 0 long-term OT goals and 2/5 short-term OT goals. The patient's language and expression are at standby to mod I; memory, mod I; problem solving, standby to minimal to moderate assistance depending on the day; swallowing, standby to mod I. she does still occasionally bite her lip. She can complete car transfers at contact guard assistance with cues for safety. She is distractible at times. Training has been done with family. The patient has been very open to pastoral care. No pharmacy concerns. DISCHARGE PLAN: The patient is receiving 3 hours of PT, OT, and speech Wednesday through Wednesday. The patient has daily rehab, nursing, and physiatry involvement as well as therapeutic recreational services 4 days per week. The patient has shown functional improvement and is progressing. Please see her plan of care for PATIENT'S NAME: NIMISHA SANTILLAN [facility] AGE: 72 Y [address] ROOM: [address] [address] LOCATION: [facility] ADMIT DATE: 02/24/2017 Consultation DISCHARGE DATE: 04/07/2017 FAMILY PHYSICIAN: Gloria Morton APRN ATTENDING PHYSICIAN: Roni Caro specific goals. Plan is for the patient to discharge on April 07, 2017, to [facility] in [place], [place]. GILDA AMAYA FOR RONI CARO MD TD/modl /[id number] d: 04/12/178 t: 04/30/17 1232, CONSULTATION REPORT
--- NOTE | ~2017-02-24 | CON ---
PATIENT'S NAME: NIMISHA SANTILLAN [facility] AGE: 72 Y [address] ROOM: [address] [place], [place] [address] LOCATION: [facility] ADMIT DATE: 02/24/2017 Consultation DISCHARGE DATE: 04/07/2017 FAMILY PHYSICIAN: Gloria Morton APRN ATTENDING PHYSICIAN: Roni Caro DATE OF CONSULTATION: 03/30/2017 REFERRING PHYSICIAN: Roni Caro MD Team members reporting include Dr. Caro; Gilda Amaya, psychotherapist social worker; Carley Barba, RN; Shazia Jenkins, PT; Erin Marin, PT; Jocelin Longoria, OT; Yessy Benavides, Speech Therapy; Kasey Peterson, therapeutic rec; and Sister Beth Carmona, Pastoral Care. CURRENT STATUS: Nimisha is a 72-year-old woman, admitted to our inpatient rehab unit following a CVA. She is getting every 2 hour bladder training. Her skin looks okay. Takes Tylenol occasionally. She is on a regular diet with a 1200 mL fluid restriction. Her p.o. intake is approximately 100%. She takes Magic cup b.i.d., Ensure pudding b.i.d., and Ensure Clear every day. Prealbumin is currently at 27. The patient can complete sit to supine transfers at standby assistance; bed to chair transfers, standby assistance. She can walk 150 feet with minimal to contact guard assistance at times. It still is fairly labor intensive, minimal assistance of the time. She can climb 4 stairs; going up contact guard assistance; coming down minimal assistance. She can propel her wheelchair 100 feet with guiding assistance needed. She has met 5/5 short- term PT goals. The patient can dress her upper body, moderate assistance; lower body, max assistance; grooming, standby; bathing, minimal assistance; toilet and shower transfers, contact guard assistance. Toileting max assistance. Her attention to the left side is improving. Feeding is currently at standby. Her left upper extremity is improving. She has met 1/5 short-term PT goals. The patient's language and expression is standby to mod I. Memory mod I. Problem solving, standby. Swallow, standby to mod I. The patient can complete car transfers at contact guard assistance to minimal assistance. Training has been done with daughter. The patient has been very open to pastoral care, very appreciative of care. The patient can read at moderate assistance. No pharmacy concerns. DISCHARGE PLAN: The patient is receiving 3 hours of PT, OT, and speech Wednesday through Wednesday. The patient has daily rehab, nursing, and physiatry involvement as well therapeutic recreational services 4 days per week. The patient has shown functional improvement and is progressing. Please see her plan of care for specific goals. Plan is for the patient to discharge in approximately 7 to 10 days. Plan is for the patient to discharge to [facility] in [place]. PATIENT'S NAME: NIMISHA SANTILLAN [facility] AGE: 72 Y [address] ROOM: [place] [address] LOCATION: [facility] ADMIT DATE: 02/24/2017 Consultation DISCHARGE DATE: 04/07/2017 FAMILY PHYSICIAN: Gloria Morton APRN ATTENDING PHYSICIAN: Roni Caro GILDA AMAYA FOR RONI CARO MD TD/modl /[id number] d: 04/12/17 1929 t: 04/30/17 1235, CONSULTATION REPORT
--- NOTE | ~2017-02-24 | CON ---
PATIENT'S NAME: KILO SANTILLAN [facility] AGE: 72 Y [address] ROOM: [address] [address] [facility] ADMIT DATE: 02/24/2017 Consultation DISCHARGE DATE: FAMILY PHYSICIAN: Gloria Morton APRN ATTENDING PHYSICIAN: Roni Caro DATE OF CONSULTATION: 03/09/2017 REFERRING PHYSICIAN: Roni Caro MD Team members reporting include Dr. Caro; Gilda Amaya, aids social worker; Carley Barba, RN; Erin Marin, PT; Shazia Jenkins, PT; Tessa Vallecillo, OT; Yessy Benavides, Speech Therapy; Kasey Peterson, therapeutic rec; and Sister Beth Barfield, Pastoral Care. CURRENT STATUS: Daksha Bansal is a 72-year-old woman, admitted to our inpatient rehab unit following a CVA. The patient was recently started on Celexa as it is felt the patient does have an overall flat affect. She is incontinent of bladder at times. The patient is on a regular diet. Her prealbumin is 30. Taking a Magic cup daily, Ensure pudding twice a day, and Ensure Enlive daily. The patient can transfer sit to supine and supine to sit at contact guard assistance; sit to stand and stand to sit, contact guard assistance; and bed to chair and chair to bed, minimal assistance. She can walk 25 to 50 feet with various assistive devices at minimal to moderate assistance. Occasionally requires a wheelchair follower which makes her dependent. Stairs have not been done yet for safety. She has met 1 out of 5 short-term PT goals. The patient can dress her upper body at moderate assistance; lower body, moderate to minimal assistance; grooming, contact guard assistance to standby assistance; bathing, minimal assistance; and toilet and shower transfers, minimal assistance. She is maximum assistance for toileting. She has left-sided inattention. She has met 0 out of 3 short-term OT goals set at standby assistance to modified independence. Language and expression is at standby assistance to minimal assistance with occasional distortions; memory, modified independence to independence; and problem solving, standby. The patient can complete car transfers at minimal to moderate assistance. She is doing visual scanning tasks at moderate to maximum assistance. Overall, flat affect. She does like support from pastoral care and likes to pray. DISCHARGE PLAN: The patient is receiving 3 hours of PT, OT, and speech, Wednesday through Wednesday. The patient has daily rehab, nursing, and physiatry involvement as well as therapeutic recreational services 4 days per week. The patient has shown functional improvement and is progressing. Please see her plan of care for specific goals. Plan is for the patient to discharge in approximately 4 weeks. Plan is for the patient to go home if at all possible; however, we may PATIENT'S NAME: KILO SANTILLAN [facility] AGE: 72 Y [address] ROOM: [address] [address] LOCATION: [facility] ADMIT DATE: 02/24/2017 Consultation DISCHARGE DATE: FAMILY PHYSICIAN: Gloria Morton APRN ATTENDING PHYSICIAN: Roni Caro need to look at alternate arrangements due to the impact of her stroke. GILDA AMAYA FOR RONI CARO MD TD/modl /[id number] d: 03/12/17 1442 t: 04/13/17 0811, CONSULTATION REPORT
--- NOTE | ~2017-02-24 | HP ---
PATIENT'S NAME: NIMISHA BLACKWOOD [facility] AGE: 72 Y [address] ROOM: [address] [place] [address] LOCATION: [facility] ADMIT DATE: 02/24/2017 History & Physical DISCHARGE DATE: FAMILY PHYSICIAN: Gloria Morton APRN ATTENDING PHYSICIAN: Heath Saini DATE OF SERVICE: CHIEF COMPLAINT: This 72-year-old female is being admitted to the Inpatient Rehab Unit at [facility] for continuous medical treatment and intensive rehabilitation. HISTORY OF PRESENT ILLNESS: Nimisha Blackwood is a 72-year-old female who presented to the [facility] last Wednesday with altered mental status and weakness of her left upper and lower extremities. She was found by her family in the bathroom unable to get up. She was taken by ambulance to the [facility] and then transferred by helicopter to [facility], where she was found to have a hemorrhage in the basal ganglia on the right-side of her head. She was seen by Dr. Bill and treated nonoperatively. There has been some improvement in the weakness of her left arm and leg, but she is still has great difficulty walking, she cannot walk independently, and is dependent on activities of daily living. She tends to slide off her chair and is unaware of the left-side of her body to a large degree and she tends to tilt her head to the right. ALLERGIES: NONE TO MEDICATIONS. CURRENT MEDICATIONS: 1. Lovenox. 2. Nilstat. 3. Norvasc. 4. Os-Lemuel. 5. Protonix. 6. Theragran-M. 7. Vitamin B12. 8. Albuterol inhaler. 9. Claritin. 10. Flonase. 11. Dulcolax. 12. Tylenol. PAST MEDICAL HISTORY: PATIENT'S NAME: NIMISHA BLACKWOOD [facility] AGE: 72 Y [address] ROOM: [address] [address] LOCATION: [facility] ADMIT DATE: 02/24/2017 History & Physical DISCHARGE DATE: FAMILY PHYSICIAN: Gloria Morton APRN ATTENDING PHYSICIAN: Heath Saini COPD. No history of diabetes or stroke prior to the current event. SURGERIES: She had a with one of her children. SOCIAL HISTORY: Smokes 5 cigarettes per day. Has smoked for 20 or 30 years. Her about a week ago. He had been sick with cancer for a long period of time. He had been in the ICU. This was a stressful time. She has 2 sons and a daughter who lives in the area. FAMILY HISTORY: Mother in her sleep at the age of 89 and father of cancer. REVIEW OF SYSTEMS: No fevers, chills, or infections. No chest pain or shortness of breath. No nausea, vomiting, some constipation. No dysuria or hematuria. No skin rashes or malaise. She was feeling well prior to the current event. PHYSICAL EXAMINATION: GENERAL: She is awake, alert, and oriented x3. Appears slightly depressed. VITAL SIGNS: Blood pressure 141/64, pulse 65 and regular, respirations 18, and temp 97.7. HEENT: Atraumatic, normocephalic. PERRL. EOMI. She tends to tilt her head to the right and look more to the right. She seems unaware of the left-side. There is a little facial droop. She has weakness of both her left upper and left lower extremities with 4/5+ strength of shoulder abduction and flexion, elbow flexion and extension, wrist flexion and extension, 4/5+ strength of hip flexion, extension, and abduction, knee flexion and extension, ankle dorsi and plantar flexion. Reflexes are somewhat hyperreflexic on the left. NECK: Supple, nontender. CHEST: Clear to auscultation. HEART: Regular rhythm without murmurs. ABDOMEN: Soft, nontender, normoactive bowel sounds. EXTREMITIES: No clubbing, cyanosis, or edema. Skin is intact. No bruising. She follows commands on the right-side and does not follow commands on the left. She nods her head and coughs on command. Pulses are intact. She has no edema in the ankles. LABORATORY DATA: Her hemoglobin is 11.2, white count 5.8, and platelets 178,000. Her sodium is 140, potassium 3.8, chloride 106, CO2 26, BUN 15, creatinine 0.5, and glucose 89. Urinalysis is negative for bacteria. Prealbumin is pending. ASSESSMENT: PATIENT'S NAME: NIMISHA BLACKWOOD [facility] AGE: 72 Y [address] ROOM: [address] [place] [address] LOCATION: [facility] ADMIT DATE: 02/24/2017 History & Physical DISCHARGE DATE: FAMILY PHYSICIAN: Gloria Morton APRN ATTENDING PHYSICIAN: Heath Saini Unstable gait, unable to stand and walk without the assistance of 1-2 therapists, she is unaware of the left-side of her body, she is weak also in the left upper extremity and has speech deficits. She is unable to transfer on her own, but she is alert and aware and able to follow commands. Mentally, she is relatively intact. She has good bowel and bladder. She is status post basal ganglia bleed on the right, treated conservatively. PLAN: Intensive physical, occupational, and speech therapy, medical management, and frequent observation for deterioration in her condition. We will keep Dr. Bill informed of any changes in mental status or alertness. She will be appropriately protected from DVTs using foot pumps and CATHLEEN hose. MD LESTER ROSS/adam /[id number] D: [id number] T: [id number] HISTORY & PHYSICAL
--- NOTE | ~2017-02-24 | DS ---
PATIENT'S NAME: KILO SANTILLAN [facility] AGE: 72 Y [address] ROOM: [id number] [place], [place] [address] LOCATION: [facility] ADMIT DATE: 02/24/2017 Discharge Summary DISCHARGE DATE: FAMILY PHYSICIAN: Gloria Morton APRN ATTENDING PHYSICIAN: Roni Caro This 72-year-old lady was admitted to Rehab Unit on 02/24/2017, is discharged to go to [place], [place] on 04/07/2017. 1. She was admitted with unstable gait, dependent activities of daily self- care with slurring of speech, left facial droop, and left visual neglect, secondary to intracranial bleeding, which was deemed not a surgical candidate. 2. She was put on Intensive Rehab, she made good progress, alert at the present time, oriented x3. 3. She is by the way is cued to the left-side fairly well. 4. Blood pressure 118/58, temperature 97.2, pulse 73, and respirations 16. She is able to go gait with contact guard assistance and to minimum assistance for balance for about 200 feet x1. She will continue to do PT, OT, and Speech on a regular basis. 5. She will follow with me in 4 weeks. 6. Follow up with Dr. Bill as he sees fit. We can synchronize her visit for both of us in the same day. 7. She must follow with her family physician as soon as possible. 8. She will be doing PT, OT, and Speech on a regular basis. She is on the following medications: 1. Norvasc 10 mg p.o. daily. 2. Os-Lemuel D 500 daily. 3. Vitamin B12 1000 mcg p.o. daily. 4. Theragran-M 1 tablet p.o. daily. 5. Protonix 40 mg p.o. daily. 6. MiraLAX 17 g p.o. q.48 h. 7. Micro-K 40 mEq p.o. daily. 8. Metamucil 1 pack p.o. daily. 9. Effexor XR 37.5 mg p.o. in a.m. 10. Tylenol 650 q.6 h., do not exceed acetaminophen 4 g q.24 h. 11. Dulcolax suppository 10 mg rectally p.r.n. 12. MOM 30 mL p.r.n. daily. FINAL DIAGNOSES: 1. Unstable gait. 2. Dependent activities of daily self-care. 3. Status post weakness of the left-side, secondary to hemorrhagic stroke. 4. Slurring of speech with left facial droop and left visual cut neglect. 5. Reflux gastric disease. 6. Dyslipidemia. PATIENT'S NAME: KILO SANTILLAN [facility] AGE: 72 Y [address] ROOM: [place] [address] LOCATION: [facility] ADMIT DATE: 02/24/2017 Discharge Summary DISCHARGE DATE: FAMILY PHYSICIAN: Gloria Morton APRN ATTENDING PHYSICIAN: Roni Caro 7. Depression. 8. Chronic obstructive pulmonary disease per history. 9. Osteoporosis. 10. Hypertension. The patient is not to drive and/or operate any mechanical device until she is reevaluated. All medication as per her discharge summary and any renewals and/or adding or subtracting any medication or discontinuing her medication per her family physician please. All the above was explained to her in detail. She verbalized understanding and agreement. RONI CARO MD WMS/modl /[id number] d: 04/07/177 t: 04/07/17 0813, DISCHARGE SUMMARY
--- NOTE | ~2017-02-24 | CON ---
PATIENT'S NAME: KILO SANTILLAN [facility] AGE: 72 Y [address] ROOM: [address] [place], [place] [address] LOCATION: [facility] ADMIT DATE: 02/24/2017 Consultation DISCHARGE DATE: FAMILY PHYSICIAN: Gloria Morton APRN ATTENDING PHYSICIAN: Roni Caro DATE OF CONSULTATION: 03/23/2017 REFERRING PHYSICIAN: Roni Caro MD Team members reporting include Dr. Caro; Gilda Amaya, social work manager; Carley Barba, RN; Shazia Jenkins, PT; Erin Marin, PT; Jocelin Longoria, OT; Yessy Benavides, Speech Therapy; Kasey Peterson, therapeutic rec; and Sister Beth Carmona, pastoral care. Also present is Laura Horner from pharmacy. CURRENT STATUS: Daksha Bansal is a 72-year-old woman, admitted to our inpatient rehab unit following a CVA with left hemiplegia. She is continent of bowel and incontinent of bladder. No skin or pain issues. The patient can transfer sit to supine at contact guard assistance with guiding assistance, bed to chair, contact guard assistance. She can ambulate 50 to 150 feet, minimal to moderate assistance, and she can climb 4 stairs with minimal to moderate assistance. She has met 3/6 short-term PT goals. The patient can dress her upper and lower body at moderate assistance, grooming standby, bathing minimal assistance, toilet and shower transfers, minimal assistance with occasional contact guard assistance needed, toileting is currently max assistance, and feeding is standby. Language and expression are currently at standby to mod I. The patient is doing oral motor exercises. She is doing better in visual scanning. The patient can complete car transfers at minimal assistance. She is starting to initiate eye contact on the left. The patient has been very open to pastoral care. No pharmacy concerns. DISCHARGE PLAN: The patient is receiving 3 hours of PT, OT, and speech Wednesday through Wednesday. The patient has daily rehab, nursing, and physiatry involvement as well as therapeutic recreational services 4 days per week. The patient has shown functional improvement and is progressing. Please see her plan of care for specific goals. Plan is for patient to discharge in approximately 2 weeks looking at discharging to a usp facility in [place], [place]. GILDA AMAYA FOR RONI CARO MD PATIENT'S NAME: KILO SANTILLAN [facility] AGE: 72 Y [address] ROOM: [place] [address] LOCATION: [facility] ADMIT DATE: 02/24/2017 Consultation DISCHARGE DATE: FAMILY PHYSICIAN: Gloria Morton APRN ATTENDING PHYSICIAN: Roni Caro TD/adam /[id number] d: 03/29/17 1330 t: 04/13/17 0814, CONSULTATION REPORT
--- NOTE | 2017-02-24 09:45 | NUR ---
0945 72 year old female admitted per wheel chair from nerotrauma unit accompanied by daughter Michelle, Roshan Nurse Lewis CONTRERAS, and transport. Pt alert and orientated, had hemorragic stroke, causing left side weakness. Reports left arm has dull sensation, and pt will neglect due to left visual deficit also. Lower legs weak, left slt more weaker than right. Also has left side facial droop, and has thrush. They have been giving her Nystatin on a green mouth swab, that pt will swish around her mouth. Speech is a little slurred, she talks softly also. Pt has hx of smoking, lungs sound course, and she was on a ventillator. Reports she gets short of breath going to the BR, has not been on oxygen. 1:1 for meals, takes meds whole 1 @ a time with water. Yessy Sage just updated pts diet to [facility] soft with thing liquids today. Last week she was using applesauce with her meds. Pt has a small topical spot on her right mid buttock, approx. 1/2 cm round, applied moisture barrier. Also to raised red spots similar to a pimple above this site, intact. She did have a christianson for awhile, since removed they reported she can have some urgency, and may take a little while to start the stream, no incontinence reported. Pt goes by Nicky. Transfers with 2 assist and walker, watch pt as she has a tendancy to fall backwards. Up in the chair for meals. The day pt had her stroke 02/13/17, her , reported it was unexpected. Daughter reports pt is uaually cold and likes extra blankets. Son Madan also came this afternoon and she has one more son Dash. Pt has been pleasant and cooperative with plan of care.
[~2017-02-24 09:58] MED LIST: ALAVERT10 MG PO; ALEVE220 MG PO; CALCIUM + D3 E1 EACH PO; FLONASE 50 MCG/16 GM NOSE; THERAGRAN-M1 TAB PO; VITAMIN B-121000 MCG PO; VITAMIN C500 M1 PO
--- NOTE | 2017-02-24 16:41 | NUR ---
Significant Event:Pt attended therapy as scheduled, with no complications. Denies pain. Family have been sitting with pt. Used call light to transfer to bed. Has been pleasant and cooperative with plan of care. Follow up:note admission note.y
[2017-02-24 21:18] LABS: BILIRUBIN URINE NEGATIVE (NEGATIVE); BLOOD URINE NEGATIVE /UL (NEGATIVE); GLUCOSE URINE NEGATIVE (NEGATIVE); KETONE URINE NEGATIVE (NEGATIVE); LEUKOCYTES URINE 500 /UL (NEGATIVE); NITRITE URINE NEGATIVE (NEGATIVE); PROTEIN URINE NEGATIVE (NEGATIVE); SPEC GRAVITY URINE 1.015 (1.003-1.035); UROBILINOGEN URINE NORMAL (NORMAL)
[2017-02-24 21:20] LABS: COLOR URINE YELLOW (YELLOW); TURBIDITY URINE 1+ (CLEAR)
[2017-02-24 21:31] LABS: WBC URINE 20-50 #/HPF (NEGATIVE)
[2017-02-24 21:34] LABS: RBC URINE 0-2 #/HPF (NEGATIVE)
[2017-02-24 21:35] LABS: BACTERIA URINE MANY (NEGATIVE); MUCUS URINE 2+ (NEGATIVE)
--- NOTE | 2017-02-25 04:41 | NUR ---
Alert and oriented. Calls for assistance as needed. Flat affect. Sons here until 2100, stating there will be family here every evening for updates and to be with pt. Very concerned about mother, jeancarlos after her husbands passing the day of her stroke. Bares wt, but difficulty moving left foot. Lt arm very weak. Is a two person transfer, leans to the left. Chair alarm in place due to balance issue when sitting up. Remains on 1:1 supervision with meals. Mechanical soft diet and thin liquids. Takes pills whole with water, one at a time. UA shows large amt WBCs. Incont x1 this shift
[2017-02-25 06:18] LABS: BASOPHIL % 0.6 %; EOSINOPHIL # 0.2 K/uL (0.0-0.5); HEMATOCRIT 33.5 % (33.0-46.0); HEMOGLOBIN 11.4 g/dL (10.0-15.0); IMMATURE GRANULOCYTE % 0.1 %; LYMPHOCYTE # 2.2 K/uL (0.8-4.0); LYMPHOCYTE % 30.7 %; MCV 97.1 fl (83.0-98.0); MONOCYTE # 0.9 K/uL (0.0-1.0); MONOCYTE % 12.2 %; MPV 10.1 fl (9.4-12.4); NEUTROPHIL # (ANC) 3.8 K/uL (1.8-7.8); NEUTROPHIL % 53.4 %; NRBC % 0 /100WBC (0-0.00); RBC 3.45 M/uL (3.50-5.50); RDW-CV 12.2 % (11.9-14.6); WBC 7.1 K/uL (4.0-11.0)
[2017-02-25 06:27] LABS: PLATELET COUNT 276 K/uL (150-450)
[2017-02-25 06:35] LABS: ALK PHOS 48 IU/L (33-138); ALT 31 IU/L (12-78); ANION GAP 11.8 (10.0-19.0); AST 31 IU/L (10-40); BLOOD UREA NITROGEN 12 mg/dL (6-24); CHLORIDE 105 mMol/L (96-110); CO2 27 mMol/L (22-32); CREATININE 0.5 mg/dL (0.5-1.1); ESTIMATED GFR (MDRD EQUATION) > 60; POTASSIUM 3.8 mMol/L (3.7-5.1); SODIUM 140 mMol/L (135-145); TOTAL PROTEIN 6.2 g/dL (6.0-8.4)
[2017-02-25 06:37] LABS: TOTAL BILIRUBIN 0.2 mg/dL (0.0-1.5)
--- NOTE | 2017-02-25 12:46 | NUR ---
Significant Event: PATIENT UP 1-2 ASSIST PIVOT TRANSFER. WEAK TO LEFT SIDE. FLAT AFFECT, VERY QUIET. NEEDS CUEING TO FIGURE OUT WHAT SHE NEEDS. DENIES PAIN. THRUSH, NYSTATIN ORALLY. MECHANICAL SOFT DIET, THIN LIQUIDS, 1:1 FEEDER. PILLS WITH WATER 1 AT A TIME. ORIENTED X3. LEFT SIDED FACIAL DROOP. VITALS STABLE ON ROOM AIR. INCONTINENT X1, OTHERWISE HAS CALLED APPROPRIATELY THIS SHIFT. FAMILY AT BEDSIDE TODAY. Follow up:
--- NOTE | 2017-02-25 23:54 | NUR ---
Alert and oriented. Calls for assistance as needed. Son Dash here this evening. Pt more talkative than last night. Is 1-2 assist pivot transfer. Difficulty moving left foot. Takes meds one at a time with water. Mechanical soft diet. Denies pain. Remian cont of urine this shift. Cares handed over to Codie Arreola RN at 22:30
--- NOTE | 2017-02-26 04:35 | NUR ---
Significant Event:Assumed cares from Arabella Corbett RN @ [phone]. Patient in bed sleeping. Call light within reach. Bed alarm on. Follow up:
--- NOTE | 2017-02-26 12:30 | NUR ---
D: Therapeutic Recreation Initial Assessment on the 02/26/17. I: Patient seen for 2 units at 1230 to begin initial evaluation. Pt has dx of right basal ganglia with hemorrhagic bleed with L) side affected. R: Patient[place]: 2 Living with: grandson Spouses name: recent # of children: 3 Driving: yes Ambulating: I Equipment: N/A Hand Dominance: Right Senior Painter strength: L) side affected Eye sight: glasses, L) neglect Reading ability: N/T Hearing: no problem Speech: clear Cognition: alert Comprehension: fair Following directions: yes Initiating: at times Eye contact: poor, L) neglect Affect: flat COMMUNITY INVOLVEMENT: grocery shopping, out to eat, car rides, past camping LEISURE INTERESTS: listen to read, computer (e-mail, Internet, games), read paper, games, past golf Patient is referred by medical staff for treatment and evaluation in the following areas: Community Skills, Functional Leisure Skills, Participation, Leisure Education/Behaviors, Family Education, Cognitive, Emotional. Information obtained: Interview, Chart Review, Observation, other. BARRIERS TO LEISURE: Physical, Lifestyle (tobacco use, alcohol use daily, reports problems with depression) Transportation Patient determined to be: APPROPRIATE FOR THERAPEUTIC RECREATION ASSESSMENT. TREATMENT WILL INCLUDE: Community living skills training Functional leisure development Physical skills development Cognitive skills development Social skills development Leisure education Emotional/behavioral adaptation Family education Community resources/packet TARGET EQUIPMENT/INFORMATION: Parking Permit WILL NEED Community Resources Energy conservation in community setting Van/Service/Taxi Scrip Adapted Leisure Equipment Stress management/Relaxation techniques Functional car transfers Leisure Education Behaviors: Attitude, Awareness, Participation. Patient functional skills level and potential: Guarded, pt demonstrates poor safety awareness, L) neglect and poor mobility. Patient oriented ot TR services on Rehab unit. Pt/family provided input into goals setting and plan of care. Pt's goal is to return home and drive. P: Target date set with personal goals established. Will continue with POC focusing on pt/family training and education. For additional information please see Nursing Data Base, PT, OT, CM, ST, initial assessments to [facility] and Interdisciplinary Assessments.
--- NOTE | 2017-02-26 16:10 | NUR ---
Significant Event: Alert and oriented. Up with 1-2A pivot transfer. Denies pain. Flat affect. Thrush. Taking nystatin orally. Mechanical soft diet. Continent of bowel and bladder this shift. Takes meds one at a time with water. 1:1 feeder. Family present throughout the day. Follow up:
--- NOTE | 2017-02-27 02:18 | NUR ---
Significant Event: Denies pain. 1-2 assist with transfers to the bathroom with wheelchair. 1:1 feeder. Repositioned. A&O x3. L) arm and leg weak. Taking Nystatin for thrush. L) arm and leg weak. Follow up:
[2017-02-27 05:57] LABS: ANION GAP 10.8 (10.0-19.0); BLOOD UREA NITROGEN 16 mg/dL (6-24); CALCIUM 8.7 mg/dL (8.5-10.5); CHLORIDE 106 mMol/L (96-110); CO2 29 mMol/L (22-32); CREATININE 0.5 mg/dL (0.5-1.1); ESTIMATED GFR (MDRD EQUATION) > 60; POTASSIUM 3.8 mMol/L (3.7-5.1); SODIUM 142 mMol/L (135-145)
--- NOTE | 2017-02-27 15:09 | NUR ---
Significant Event:Alert and orientated x 3. Up with 1-2 pivot transfer/gait belt, leans to the left, watch left leg, has some movement, but not very well controlled. Has flat affect, will wvoid left side due to left side vision deficiet. Swabs mouth per self with med for thrush when handed to pt. Family often sit with pt during meal, family good support. Takes meds one at a time with water. Pt is 1:1 feeder. L arm and leg remain weak with minimal movement. Pt has been pleasant and cooperative with plan of care. Deniea pain. Follow up:pain control 1:1 feeder family can assist.
--- NOTE | 2017-02-28 03:13 | NUR ---
Significant Event: Up with 1-2 pivot transfer, leans to the left--watch left foot as needs guidance and left knee weak/celestino with early a.m transfer from toilet back to w/c. Incontinent of urine x 1. 1:1 feeder, takes meds whole with water one at a time. Foot drop boot to left. Uses Nystatin for oral thrush. Heart murmur, tingling to left arm/hand, numb to left leg/foot. Left visual neglect, does tend to look off to the right. Awakens in 1-3 hrs for voids and then was repositioned. Flat affect. Follow up:Call if SBP > 160 or < 90. Monitor pivot transfers, utilize safety.
--- NOTE | 2017-02-28 10:45 | NUR ---
Significant Event:Pt slept late this am, Mothers Day. Assisted 2, dressed, transfered to wheel chair with pivot transfer/gait belt. Pt leans to the left, weak side, occasionally moves arm and leg, but does not have good control of motion. Speech usually clear, occasaional slurring, also has left side vision deficiet. Nystatin given for Thrush, pt uses green swab to swhish around mouth. Family are here throughout the day, good support for pt, often sit with pt during meals as pt to be monitored during meals. Pt has been pleasant and cooperative with plan of care. Follow up:pain control, 1:1 feeder/family can assist when here, and fall @ risk/leans to the left.
--- NOTE | 2017-02-28 14:28 | NUR ---
A - PT SCREENED D/T LOS. NO NEW LABS. MEDS NOTED. WT OF 101# DOWN 5# FROM ADMIT TO REHAB. DIET: MECH SOFT W/ ENSURE PUDDING BID, ENSURE QD, MAGIC CUP QD. INTAKE 25-75%. 1:1 FEEDER. EST NEEDS: 8839-5935 KCALS, 51-61 GM PROTEIN. D - AT RISK W/ UNDERWEIGHT R/T INADEQUATE ORAL INTAKE AEB BMI < 18.5. I - GOAL: 50-75% ORAL INTAKE. M/E - 1) WILL F/U ON NEXT WT; IF CONTS TO DECLINE ? NEED FOR SUPPLEMENTAL EN. 2) WILL F/U IN 2-4 DAYS.
--- NOTE | 2017-03-01 04:09 | NUR ---
Significant Event:Transfers with 1-2 assist, leans to the left, at times left leg is weak and flexes at knee. Flaccid left arm. Able to lift arm/leg but poor control. Numbness to left hand and left leg/foot. No edema. Lotion to dry skin on legs. Looks towards the right with eyes/head often. B/p was 162/77 after being up to br, retook b/p and was at Voids x 3, with 2 small incontinence prior to the void. Refused hs snack. Follow up:Encourage oral intake, weight has dropped since she's been in hospital. Monitor pivot transfers. Call dr if b/p > 160 or < 90.
--- NOTE | 2017-03-01 14:05 | NUR ---
Significant Event: Pt up in room to toilet and w/c 1-2 assist. Do not leave alone in BR as it was reported pt stood up on own in BR this weekend. Pt denied pain t/o day. Pt takes meds whole with water. White coated tongue, pt uses nystatin on mouth swab well. Facial droop present, weakness to left upper and lower. Pt able to raise arm and moderate grasp, but has poor fine motor. Pt able to dorsiflex and plantar flex foot. Reported left foot and wrist and hand are numb. Pt pleasant and cooperative with cares. Follow up: activity, pain management, safety. Foot drop boot on at night.
--- NOTE | 2017-03-02 04:38 | NUR ---
Significant Event: Patient is alert and oriented , VSS. Denies pain or discomfort. Up 2 assist scoot transfer with GB. Left side effected, has good grasp and can raise her leg but has poor control. Has some numbness and tingling to upper and lower left extremity. Leans to the left, also has a left visual deficit and turns her head to the right. Calls to use the bathroom but was incontinent of urine x 1 last night. Wears a foot drop boot at night. Leans greatly to the left is not safe to leave alone, Alarm for safety. Follow up: Call MD if SBP is >160 or < 90.
[2017-03-02 07:08] LABS: ALBUMIN 3.2 gm/dL (3.5-5.0); ALK PHOS 49 IU/L (33-138); ALT 30 IU/L (12-78); ANION GAP 11.8 (10.0-19.0); AST 21 IU/L (10-40); BLOOD UREA NITROGEN 20 mg/dL (6-24); CALCIUM 8.8 mg/dL (8.5-10.5); CHLORIDE 104 mMol/L (96-110); CO2 28 mMol/L (22-32); CREATININE 0.7 mg/dL (0.5-1.1); ESTIMATED GFR (MDRD EQUATION) > 60; POTASSIUM 3.8 mMol/L (3.7-5.1); SODIUM 140 mMol/L (135-145); TOTAL PROTEIN 6.4 g/dL (6.0-8.4)
[2017-03-02 07:10] LABS: TOTAL BILIRUBIN 0.3 mg/dL (0.0-1.5)
--- NOTE | 2017-03-02 12:23 | NUR ---
D: TR progress note for 03/02/17. I: Pt seen for 2 units at 930 for LUE fine motor skills, scanning, and coping strategies. R: Pt seen for functional skills building working on scanning, motor skills, coordination, and coping strategy to increase independence with all task. Pt worked on adaptive jigsaw puzzle needing occasional > SBA for cues to identify correct edge and placement of puzzle puzzles utilizing BUE with fair > poor fine motor skills. Pt continues to need cues for scanning L) with poor coordination and motor skills. Education continue on use of leisure to promote recovery and coping. P: Will continue to see to address goals and plan of care.
--- NOTE | 2017-03-02 14:53 | NUR ---
A/O. Denies pain. Gave milk of mag due to abdominal discomfort at 1350. 1-2 Assist with gait belt to WC. Do not leave alone at bedside or in bathroom. Numbness and tinglings to left upper and lower extremities. Left visual deficit, turns her head to the right. Calls to use restroom. Foot drop boot at night. Takes oral meds well, one at a time.
--- NOTE | 2017-03-02 15:50 | NUR ---
A - NUTRITION FOLLOW-UP. PER RECORD, 2# WT LOSS IN 3 DAYS. VISITED PT THIS AFTERNOON BUT NO EYE CONTACT DURING CONVERSATION. LABS: ALB 3.2, PRE-ALB 28. NO NEW MEDS. DIET: CHANGED TO REGULAR TODAY. INTAKE 36% X10 MEALS, TAKING SUPPLEMENT 100%. INFORMED PT OF WT LOSS, STATED THAT SHE IS AWARE. SMALL EATER PER PT. LIKES ALL SCHEDULED NUTR SUPPLEMENT. PT IS GETTING ENSURE PUDDING BID; ENSURE ENLIVE 1X/DAY; MAGIC CUP BID; YOGURT ONCE DAILY. ENCOURAGED PO INTAKE. EST NEEDS: [id number] KCAL, 51-61 GRAMS PROTEIN, FLUID: 1ML/KCAL D - INADEQUATE ORAL INTAKE RELATED TO DECREASED APPETITE EVIDENCED BY PO 36% X10 MEALS AND 2# WT LOSS IN 3 DAYS PER RECORD. I - 1) CONTINUE W/ CURRENT SCHEDULED ORAL SUPPLEMENT/SNACK. 2) RECOMMEND EN TO SUPPLEMENT PO INTAKE: JEVITY 1.5 AT 40ML/HR WITH 30ML/HR WATER FLUSHES. M/E - GOAL: PT WILL BE ABLE TO TOLERATE >50% OF MEALS AND AT LEAST TWO ORAL SUPPLEMENT/SNACK PER DAY IN 2-4 DAYS.
--- NOTE | 2017-03-03 04:56 | NUR ---
Alert and oriented. Is a 1-2 assist scoot transfer. Left sided weakness and visual field deficit. Leans greatly to the left. Remained cont this shift. Takes pills one at a time with water. Recieved MOM last night with still no results. May want to repeat this am.
--- NOTE | 2017-03-03 11:55 | NUR ---
D: TR progress note for 03/03/17. I: Pt seen for 2 units at 1105 in group session for education on safety when around pets/animals, and leisure education. R: Pt seen for functional skills building working on fine motor skills, scanning, safety awareness and functional social communication in anticipation for discharge back into community/home where animals will be present. Pt independent with personal introduction of self and sharing with group about pets. Pt utilized RUE with cues scanning L) and to remain alert during Animal Assisted Therapy. Education done on safety with ambulation/mobility in homes when around animals, safety with possibility of poor skin integrity and utilizing pets to assist with coping and stress/pain management when opportunity available. P: Will continue to see to address goals and plan of care.
--- NOTE | 2017-03-03 16:11 | NUR ---
A/O. Denies pain. Withdrawn. 1-2 Assist pivot to bed and wc, with gait belt. Left side weakness in arm, leg, and face. Numbness and tingling in left upper and lower extremities. Left visual deficit. Incontinent urine this morning. Has been continent since and calls to use the restroom. Takes oral meds well one at a time. Food drop boot at night.
--- NOTE | 2017-03-03 16:46 | NUR ---
Significant Event:PATIENT ALERT AND ORIENTED THIS SHIFT. VSS. TRANSFERS WITH 1 ASSIST, GAIT BELT SCOOT TRANSFER. PRIMARY CARE DONE TODAY BY STUDENT NURSE. PATIENT HAS DENIED PAIN. LEFT HAND WEAKER THAN RIGHT. IS ABLE TO MOVE FINGERS BUT NEEDS TO REALLY CONCENTRATE TO GET IT TO COOPERATE. TOLERATING THERAPY WITHOUT DIFFICULTY. WAS MOVED TO ROOM 3292 LATE IN THE SHIFT SO SHE WOULD HAVE A PRIVATE ROOM SHE IS PLANNING TO BE HERE FOR SEVERAL WEEKS. NO OTHER COMPLAINTS. Follow up:
--- NOTE | 2017-03-04 04:30 | NUR ---
Patient alert and oriented. Transfers 1-2A scoot. L) side weaker than R), is able to grasp fingers and move. Had 3BM's due to suppository given. Takes pills whole with water. Family at bedside. Cooperative with cares.
--- NOTE | 2017-03-04 14:41 | NUR ---
A-NUTRITION F/U NO NEW WT SINCE 03/02 NOTE. (+)BM NO NEW LABS DIET RX: REGULAR W/ENSURE PUDDING BID, ENSURE ENLIVE QD, AND MAGIC CUP QD PO INTAKE OF MEALS IS 25-75%. PO INTAKE OF SUPPLMENTS IS 100%. EST NUTR NEEDS: [id number] KCALS AND 51-61 GM PROTEIN D-AT NUTRITION RISK W/UNDERWEIGHT R/T INADEQUATE INTAKE OF NUTRIENTS AEB INTAKE RECORDS, BMI <18.5. I-1)CONTINUE W/CURRENT SUPPLEMENTS 2)IF EN DESIRED, SEE 03/02 NOTE FOR RECOMMENDATIONS M/E-GOAL: PO INTAKE OF MEALS >/=505 BY NEXT F/U 1)F/U PO INTAKE, SUPPLEMENT, WT, LABS AND POC IN 4-5 DAYS 2)ASSIST NEEDED
--- NOTE | 2017-03-04 15:27 | NUR ---
Significant Event:PATIENT ALERT AND ORIENTED THIS SHIFT. VSS. TRANSFERS WITH 1 ASSIST, GAIT BELT SCOOT TRANSFER. LEFT SIDE IS MUCH WEAKER THAN THE RIGHT BUT IS ABLE TO MOVE WITH CONCENTRATING. TAKES MEDS WHOLE WITH WATER. HAS DENIED PAIN. LIKES TO REST BETWEEN THERAPIES. NO OTHER COMPLAINTS. Follow up:
--- NOTE | 2017-03-04 16:04 | NUR ---
[facility] Case Management Prefunctioning and Psycho-Social Initial Assessment for 02/24/17 and Case Conference Note for 03/02/17 D: Initial [employer] WorkerVideo Intern and Case Conference Note I: Input from: patient, family, Dr. Hwang, Gilda MACARIOW R: Reason for admission: right basal ganglia hemorrhage with mass effect Admission Date to [facility]: 02/24/17 Admission Date to Hospital: 02/13/17 Prior level of functioning: patient was independent with adl's and household prior to stroke. Prior living situation: one story house Financial resources/expectations: patient has medicare and [employer]. Resources used: none. Resources available: HHC, outpatient therapy, SNF, [facility], [facility], DME Family support available: kids, grandkids Understands nature of health condition: yes Recognizes impact of health condition on lifestyle: yes Vocational/Educational: retired Behavior/Emotional needs: cues for safety. Monitor for signs and symptoms of depression and anxiety. the day that she had stroke. Legal concerns: none. Discharge goal: home with support. Assessment: Nimisha is a 72 year old woman from [place], [place] admitted after a stroke. She has good family support. Plan is to d/c in approx. 5 weeks. Will follow and assist as needed. Orientation to the program and CM services completed with Nimisha. Initial plan of care and estimated length of stay discussed, disclosure statement reviewed including patient assessment rights. P: Target date and individual goals established. Please see POC for details. For additional information please see Nursing Data Base, PT, OT, TR, ST, Initial assessments to [facility].
--- NOTE | 2017-03-05 04:57 | NUR ---
Significant Event: up to bathroom with wheelchair and 1 assist. has expressive aphasia. disoriented to time. left sided weakness. weak left hand grasp. mouth droops on left side. denies pain. bed alarm on. refused oral cares. do not leave alone in bathroom. Follow up:
--- NOTE | 2017-03-05 12:02 | NUR ---
D: TR Progress Note for 03/05/17. I: Pt seen for 2 units at [facility] for community integration skills building, functional transfers, and safety awareness. R: Pt seen for functional skills building working on mobility, safety, and functional transfers in anticipation for discharge back into community. Pt transferred to/from vehicle CGA > min assist doing scoot type transfer with verbal cues for hand placement and safety. Pt was SBA for BLE management and positioning self with seat surface adapted using trash bag to ease task and verbal cues for LLE. Pt tolerated ride with no C/o nausea, pain, or discomfort, tested on [facility] scanning of objects and signs, dependent for scanning L) 95% of time. P: Will continue to see to address goals and plan of care.
--- NOTE | 2017-03-05 17:34 | NUR ---
Significant Event: Pt up to w/c and toilet with 1 assist, scoot transfer, pt does like to do more of a stand pivot transfer. Need to stay with pt in BR. Watch for pocketing of meds, did well today. Takes meds whole with water. Pt c/o left foot pain, but refused offer for prn meds. Pt continues to have left visual neglect. [place] affect majority of time. Some expressive aphasia. Pt cooperative with cares. Follow up: activity, pain management, safety
--- NOTE | 2017-03-06 04:52 | NUR ---
Alert but disoriented to time this evening. Thought it was 10 am instead of PM. Calls for assistance as needed. Is 1 person scoot transfer. May need to to transfer in bathroom when tired. Leans to the left. Stay in BR with pt. Expressive asphasia. More talkative this evening.
[2017-03-06 05:45] LABS: ANION GAP 11.9 (10.0-19.0); BLOOD UREA NITROGEN 14 mg/dL (6-24); CALCIUM 8.9 mg/dL (8.5-10.5); CHLORIDE 104 mMol/L (96-110); CO2 29 mMol/L (22-32); CREATININE 0.6 mg/dL (0.5-1.1); ESTIMATED GFR (MDRD EQUATION) > 60; POTASSIUM 3.9 mMol/L (3.7-5.1); SODIUM 141 mMol/L (135-145)
--- NOTE | 2017-03-06 14:33 | NUR ---
Significant Event:PATIENT ALERT AND ORIENTED THIS SHIFT. VSS. TRANSFERS WITH 1-2 ASSIST, GAIT BELT SCOOT/PIVOT TRANSFER. SON HERE VISITING MOST OF THE DAY. BROUGHT HER LUNCH WHICH SHE ATE WELL. HAS DENIED PAIN ALL SHIFT. RESTED IN BED MOST OF THE DAY BUT WAS UP IN THE WHEELCHAIR FOR PART OF IT TOO. DOES NYSTATIN SWAB HERSELF AND DOES VERY WELL. HAS TAKEN ALL MEDS WHOLE A COUPLE AT A TIME WITH WATER AND DOES WELL. NO OTHER COMPLAINTS. Follow up:
--- NOTE | 2017-03-07 02:44 | NUR ---
Significant Event:ALERT TO SELF. TIRED AND NOT TALKING MUCH THIS EVENING. REORIENTS TO TIME AND PLACE. 1 ASSIST PIVOT/SCOOT TRANSFER.LEANS LEFT. LEFT ARM FLACCID. MEDS WHOLE 1-2 AT A TIME. DENIES NEED FOR PRN MEDICATIONS. INCONTINENT AT TIMES. CALF PUMPS ON. VSS ON ROOM AIR. CALL LIGHTIN REACH. BED ALARM ON. Follow up:
--- NOTE | 2017-03-07 13:48 | NUR ---
Significant Event: Patient alert and oriented. Left arm is flaccid. Left leg weakness. Is aphasic. 1 assist pivot transfer to wheelchair. Follow up:
--- NOTE | 2017-03-08 03:54 | NUR ---
Significant Event:Pt A/O. 1 assist pivot scoot transfers. Left arm flaccid & left leg very weak. Patient seems to tire easily tonight. Denies pain. Refused nystatin swish; scheduled to to be complete last night. Bed alarm on. Call bulb pinned to gown. Cooperative with cares. Follow up:
[2017-03-08 06:29] LABS: ALBUMIN 3.3 gm/dL (3.5-5.0); ANION GAP 11.8 (10.0-19.0); BLOOD UREA NITROGEN 17 mg/dL (6-24); CALCIUM 9.1 mg/dL (8.5-10.5); CHLORIDE 105 mMol/L (96-110); CO2 27 mMol/L (22-32); POTASSIUM 3.8 mMol/L (3.7-5.1); SODIUM 140 mMol/L (135-145)
[2017-03-08 06:34] LABS: ALK PHOS 51 IU/L (33-138); ALT 26 IU/L (12-78); AST 23 IU/L (10-40); CREATININE 0.6 mg/dL (0.5-1.1); ESTIMATED GFR (MDRD EQUATION) > 60; TOTAL PROTEIN 6.7 g/dL (6.0-8.4)
[2017-03-08 06:37] LABS: TOTAL BILIRUBIN 0.5 mg/dL (0.0-1.5)
--- NOTE | 2017-03-08 14:37 | NUR ---
Significant Event: Pt up in room with 1 assist, scoot/ stand pivot to w/c then to toilet. Left sided weakness remains. Pt does have left hand grasp and is able to raise arm up but is weak. Left leg has slight movement. At times c/o pain to left leg/foot. Expressive aphasia remains at times. Able to answer most questions appropriately. Left visual neglect remains. Pt cooperative with cares. Follow up: activity, safety- stay with pt in BR, alarms in use
--- NOTE | 2017-03-08 14:41 | NUR ---
A-NUTRITION F/U 03/06 WT: 42.7 KG. WT ON 03/02 WAS 45.9 KG. 03/08 LABS REVIEWED: PREALB 30; THIS IS UP FROM 28.0 DIET RX: REGULAR WITH ENSURE ENLIVE QD, MAGIC CUP QD, AND ENSURE PUDDING BID. PO INTAKE 25-1005; AVG IS 49%. TAKING 75-1005 OF SUPPLEMENTS VISITED W/PT AND PT STATES HER APPETITE IS IMPROVING; DOES NOT WANT TO MAKE ANY CHANGES IN SUPPLEMENTS AT THIS TIME. EST NUTR NEEDS: 3951-1757 KCALS AND 51-61 GM PROTEIN D-AT NUTRITION RISK W/INADEQUATE INTAKE OF NUTRIENTS R/T DECREASED APPETITE AEB LOW BMI, INTAKE RECORDS. I-1)CONTINUE W/CURRENT SUPPLEMENTS 2)REQUEST A CURRENT WT M/E-GOAL: PO INTAKE >/=50% BY NEXT F/U 1)F/U PO INTAKE, SUPPLEMENT, WT, LABS, AND POC IN 3-5 DAYS 2)ASSIST NEEDED
--- NOTE | 2017-03-08 14:45 | NUR ---
REQUEST A REWEIGH. PT'S WT ON 03/06-42.7 KG AND ON 03/02 IT WAS 45.9 KG.
--- NOTE | 2017-03-09 02:12 | NUR ---
Significant Event: Alert to self and place. Reorient to to time and day. 1 assist scoot/pivot transfer. Left side neglect.Can raise left arm but no grasp. Left LE moves with difficulty. Showered tonight. Patient feels constipated, given M.O.M. at shift change. Impatient for it to work. Stomach mildly disstended, still soft. BS present. Meds whole in applesauce. Bed alarm on. Call bulb attached to gown. Follow up:
[2017-03-09 06:16] LABS: BLOOD UREA NITROGEN 17 mg/dL (6-24); CHLORIDE 106 mMol/L (96-110); CO2 27 mMol/L (22-32); CREATININE 0.6 mg/dL (0.5-1.1); ESTIMATED GFR (MDRD EQUATION) > 60; SODIUM 142 mMol/L (135-145)
--- NOTE | 2017-03-09 14:22 | NUR ---
D: TR progress note for 03/09/17. I: Pt seen for 2 units at 1300 for leisure education, scanning, coping strategies and functional transfers. R: Pt seen for functional skills building working on functional transfers, motor skills, cognitive visual/observation skills activity for scanning coping strategies to promote recovery in all areas. Pt's daughter presents for session. Pt given "visual search" puzzle to identify difference. Pt able to complete with max cues missing/different items, fair attention to task but poor visual scanning. Education continued on use of leisure to promote recovery and for coping strategies. Pt transferred from on/off toilet min assist doing scoot type transfers, min assist for clothing management and SBA for hand hygiene. P: Will continue to see to address goals and plan of care.
--- NOTE | 2017-03-09 17:45 | NUR ---
Significant Event:PATIENT ALERT AND ORIENTED THIS SHIFT. VSS. TRANSFERS WITH 1 ASSIST, GAIT BELT AND SCOOT TRANSFER. HAS HAD SOME PAIN TODAY IN HER BACK. GIVEN X 2 TODAY. LAST DOSE THIS EVENING AT 1735. ALSO COMPLAINED OF CONSTIPATION SO WAS GIVEN MOM AT 1515 PER HER REQUEST. NEW ORDER OBTAINED FOR METAMUCIL AT BEDTIME. TAKES MEDS WHOLE WITH APPLESAUCE SHE WAS HAVING SOME TROUBLES THE LAST FEW DAYS WITH SWALLOWING. IS DOING WELL WITH THIS. DAUGHTER HAS BEEN AT BEDSIDE ALL SHIFT. NO OTHER COMPLAINTS. Follow up:
--- NOTE | 2017-03-09 17:49 | NUR ---
Significant Event: Patient alert and oriented. Patient up to wheelchair with 1 asst. scoot/stand pivot to wheelchair then to tolet. Left side weakness. Leg left hasslight movement, however still weak. Left arm is flaccid with slight knitting supervisor. Able to move left leg and toes. Flat affect at this time. Expressive aphasia remains. Able to answer questions appropriately. Complaining of pain in lower back this am. Pain in right buttocks this pm. Tylenol given at 0909 and again for right buttocks pain at 1735. Left visual neglect remains. Celexa (citalopram) added to medication list as of 03/09 given at 1500. Follow up:
[2017-03-10 01:24] LABS: BILIRUBIN URINE NEGATIVE (NEGATIVE); BLOOD URINE 25 /UL (NEGATIVE); COLOR URINE YELLOW (YELLOW); GLUCOSE URINE NEGATIVE (NEGATIVE); KETONE URINE NEGATIVE (NEGATIVE); LEUKOCYTES URINE 500 /UL (NEGATIVE); NITRITE URINE NEGATIVE (NEGATIVE); PROTEIN URINE 15 mg/dL (NEGATIVE); SPEC GRAVITY URINE 1.015 (1.003-1.035); TURBIDITY URINE 3+ (CLEAR); UROBILINOGEN URINE NORMAL (NORMAL)
[2017-03-10 01:37] LABS: AMORPHOUS URINE 4+ (NEGATIVE); BACTERIA URINE FEW (NEGATIVE); EPITHELIAL URINE 0-2 #/HPF (NEGATIVE); WBC URINE FULL FIELD #/HPF (NEGATIVE)
--- NOTE | 2017-03-10 04:04 | NUR ---
Patient alert and oriented. Transfers 1A GB/ Pivot to right side. L) sided neglect. Started on Metamucil tonight. Takes meds whole in applesauce. Tylenol last given at 2259 for pain in R) hip/buttock. UA obtained. Has been calling to go to restroom and is not able to go at times. Cooperative with cares.
--- NOTE | 2017-03-10 11:44 | NUR ---
D: TR progress note for 03/10/17. I: Pt seen for 2 units at 1100 in group session for education on relaxation techniques, stress/pain management, coping strategies, group participation and leisure education. R: Pt seen for functional skills building working on relaxation techniques, stress/pain management, continued education on coping skills and sleep to promote recovery. Pt completed functional social communication skills independently which involved personal introduction of self and identification of past favorite Springtime activity. Education completed by verbal discussion and modeling on the signs and symptoms the physical stress/pain can cause on the body and it's affects along with identification of coping strategies, relaxation techniques using music, playaways, aromatherapy, labyrinthi, breathing exercises and leisure activities. Pt continues to need cues for scanning L). P: Will continue to see to address goals and plan of care.
--- NOTE | 2017-03-10 15:56 | NUR ---
Significant Event:PATIENT ALERT AND ORIENTED THIS SHIFT. VSS. CARES PROVIDED BY STUDENT NURSE THIS SHIFT AND OVERSEEN BY MYSELF. TRANSFERS WITH 1 ASSIST, GAIT BELT SCOOT TRANSFER. GIVEN TYLENOL AT 1231 FOR PAIN IN HER RIGHT HIP. ALSO APPLIED ICE TO AREA. NO OTHER COMPLAINTS. Follow up:
--- NOTE | 2017-03-10 16:51 | NUR ---
Significant Event: PATIENT ALERT AND ORIENTED TODAY. PATIENT COMPLAINING OF CONSTIPATION TODAY, BUT ABLE TO HAVE TWO SM FORMED BM'S IN THE AM. BOWEL SOUNDS ARE ACTIVE. TRANSFERS WITH 1 ASSIST, GAIT BELT AND SCOOT TRANSFER. PATIENT WAS SLIGHTLY IMPLUSIVE TODAY, UNWILLING TO WAIT WITH STANDING. PATIENT TAKING MEDICATIONS ONE AT A TIME WITH APPLESAUCE. PATIENT DRINKING WATER MORE WHEN ASKED TO. Follow up: WATCH INTAKE AMOUNTS AND URINE OUTPUT.
--- NOTE | 2017-03-11 04:36 | NUR ---
Patient alert and oriented but can be forgetful at times. Transfers 1A GB/walker. L) side neglect. Starting to have some results from the metamucil but still not where she wants there to be. Takes meds whole in applesauce. VSS. Cooperative with cares.
--- NOTE | 2017-03-11 12:25 | NUR ---
A - NUTRITION FOLLOW-UP. FLAT AFFECT. NO NEW WEIGHT NOTED. INFORMED RN TO GET NEW WT ON PT. PER RN, PATIENT WILL GET NEW WT ON WEDNESDAY. SON IN ROOM W/ PATIENT DURING VISIT. LABS: ALB 3.3, PRE-ALB 30 NEW MEDS: CELEXA, PSYLLIUM DIET: REGULAR W/ ENSURE ENLIVE 1X/DAY; MAGIC CUP 2X/DAY; YOGURT 1X/DAY; ENSURE PUDDING 2X/DAY. INTAKE 69% X10 MEALS, TAKING SUPPLEMENT 100%. PT NOD FOR GOOD APPETITE. LIKES ENSURE PUDDING, DISLIKES ENSURE ENLIVE, YET TO TRY MAGIC CUP. ENCOURAGED PO INTAKE AND HIGH PROTEIN TO PREVENT WT LOSS. ENCOURAGED PATIENT TO TRY NUTRITION SUPPLEMENT WELL, VOICED UNDERSTANDING. EST NEEDS: 8867-8655 KCAL, 51-61 GRAMS PROTEIN, FLUID NEEDS: 1ML/KCAL D - INCREASED NUTRIENT NEEDS RELATED TO ALTERATIN IN APPETITE EVIDENCED BY PO 69% X10 MEALS, 10# WT LOSS NOTED AND BMI <18. I - CHANGING ENSURE ENLIVE TO ENSURE CLEAR 1X/DAY; CONTINUE TO MAGIC CUP, YOGURT AND ENSURE PUDDING. M/E - GOAL: PT WILL BE ABLE TO TOLERATE >70% OF MEALS AND AT LEAST TWO ORAL SUPPLEMENT PER DAY IN 4-6 DAYS.
--- NOTE | 2017-03-11 13:05 | NUR ---
Significant Event: PATIENT UP 1 ASSIST SCOOT/PIVOT TRANSFER. FLACCID TO LEFT SIDE, TRANSFERS WELL TO RIGHT SIDE. ALERT AND ORIENTED X3, DOES NOT SPEAK MUCH BUT IS ABLE TO COMMUNICATE NEEDS WELL. TYLENOL FOR PAIN. VITALS STABLE ON ROOM AIR. COOPERATIVE WITH CARES. MEDS IN APPLESAUCE. Follow up:
--- NOTE | 2017-03-11 14:28 | NUR ---
D: Hvac Controls Technician Team Conference Follow up for 03/09/17 I: Input from patient/family R: Met with: patient, family, Gilda Prater WASTE DISPOSAL LEAKAGE TESTER Discussed rehab plan, patient progress, discharge plan and estimated length of stay of d/c in approx. 4 weeks. Patient/Family Preference: Patient is in agreement with plan of care. Anticipated discharge disposition: unknown. Education completed: Education was completed with patient regarding length of stay, progress in therapy and d/c plan. Assessment/Recommendation: Team recommends d/c in approx. 4 weeks. P: Case Coordination: Nimisha is a 72 year old woman from [place], [place] admitted after a stroke. Will follow and assist as needed.
--- NOTE | 2017-03-12 03:22 | NUR ---
Significant Event: up to bathroom with 1 assist, scoot/pivot transfer. left side weakness. aphasic. tylenol given at 2304 for pain. takes meds in applesauce. repositions with 1. Follow up:
[2017-03-12 06:20] LABS: ANION GAP 14.4 (10.0-19.0); BLOOD UREA NITROGEN 15 mg/dL (6-24); CALCIUM 8.7 mg/dL (8.5-10.5); CHLORIDE 102 mMol/L (96-110); CO2 26 mMol/L (22-32); CREATININE 0.6 mg/dL (0.5-1.1); ESTIMATED GFR (MDRD EQUATION) > 60; POTASSIUM 3.4 mMol/L (3.7-5.1); SODIUM 139 mMol/L (135-145)
--- NOTE | 2017-03-12 12:11 | NUR ---
D: TR Progress Note for 03/12/17. I: Pt seen for 2 units at 1102 for community integration skills building, functional transfers, and safety awareness. R: Pt seen for functional skills building working on mobility, safety, and functional transfers in anticipation for discharge back into community. Pt's son present for session, transferred into his vehicle. Pt transferred to/from vehicle CGA x2 with first time being min assist and second transfer CGA doing scoot/pivot transfers. Pt needed verbal cues and tactile cues due to L) neglect for hand placement and safety. Pt was SBA for BLE management with extra time allotted and cues. Pt tolerated ride with no C/o nausea, pain, or discomfort. P: Will continue to see to address goals and plan of care.
--- NOTE | 2017-03-12 16:51 | NUR ---
Significant Event:PATIENT ALERT AND ORIENTED THIS SHIFT. VSS. TRANSFERS WITH 1 ASSIST, GAIT BELT PIVOT TRANSFER. LEFT LEG VIN AT TIMES. TAKES MEDS WHOLE WITH APPLESAUCE. IS ABLE TO GRASP WITH LEFT HAND IF SHE THINKS ABOUT IT BUT REALLY TAKES EFFORT. HAS HAD COMPLAINTS OF PAIN IN HER RIGHT BUTTOCK UPPER LEG AND TAKES TYLENOL FOR IT. LAST DOES WAS 1254 THIS AFTERNOON. NO OTHER COMPLAINTS. Follow up:
--- NOTE | 2017-03-13 03:35 | NUR ---
Significant Event:Up with 1 assist with pivot transfer into w/c, occas left knee celestino but none observed this shift. Handgrasp weak to left side. Voids x 2 in br, moderate bm last evening. Had low grade temp of 99.3, did increase to 99.6 after having had warm blanket on. Temp dropped to 98.6 prior to midnight. Takes meds whole in applesauce, no choking/no coughing. 154/77 Weight 44.9 kg. C/o Rt thigh/buttock area--given tylenol twice, last dose at 0216. Aphasic, facial drooping and has head turned towards rt side. Follow up:Meds whole in applesauce, don't leave alone in br due to safety concerns. Encourage fluids.
--- NOTE | 2017-03-13 15:31 | NUR ---
Significant Event: Pt up in room with scoot/ pivot to w/c and toilet. Be aware on left knee support/placement. Pt had therapy most of the am. Tylenol given at 1220 for rt hip/leg pain. Pt has left side neglect. Meds given whole in applesauce or pudding. Moderate soft BM today. Pt pleasant and cooperative with cares. Pt's daughter at bedside t/o day. Follow up: activity, safety, pain management, continue to watch left knee
--- NOTE | 2017-03-14 05:31 | NUR ---
Significant Event: tylenol 650 mg givne twice, last at 0434 for c/o pain to right upper leg. had headache earlier in shift and temp of 100.4.headache better after tylenol. repositions with 1. up to bathroom per wheelchair with 1 assist. transfers fair. Left sided weakness. has been continent. Follow up:
--- NOTE | 2017-03-14 16:03 | NUR ---
Significant Event:PATIENT ALERT AND ORIENTED THIS SHIFT. IS FORGETFUL AT TIMES. DAUGHTER HERE MOST OF THE DAY. VSS. TRANSFERS WITH 1 ASSIST, GAIT BELT SCOOT/PIVOT TRANSFER. IS QUICK AT TIMES AND NEEDS REMINDED TO WAIT. TAKES TYLENOL FOR PAIN IN HER RIGHT BUTTOCK/LEG AREA. LAST DOSE GIVEN AT 0924 THIS AM. HAS RESTED IN BED ALL DAY. DID NOT WANT TO GET DRESSED AT ALL EITHER. CATHLEEN HOSE ON THOUGH. HAS EATEN MEALS IN HER WHEELCHAIR. NO OTHER COMPLAINTS. Follow up:
--- NOTE | 2017-03-15 05:32 | NUR ---
Significant Event: temps 99.5 and 98.5 during night. up to bathroom with 1-2 assit, kareyroseline casas, wants to stand pivot. do not leave alone in bathroom, wants to move to quick. refused metamucil, but feels she needs to have a bm. checked for impaction, no stool in rectum. some anxiety noted. left side weakness, slight l) hand grasp. tylenol 650 mg given at 1900 for rt upper leg pain. Follow up:
[2017-03-15 06:54] LABS: ALBUMIN 3.6 gm/dL (3.5-5.0); ALK PHOS 49 IU/L (33-138); ALT 68 IU/L (12-78); ANION GAP 12.1 (10.0-19.0); AST 52 IU/L (10-40); BLOOD UREA NITROGEN 13 mg/dL (6-24); CALCIUM 8.8 mg/dL (8.5-10.5); CHLORIDE 99 mMol/L (96-110); CO2 28 mMol/L (22-32); CREATININE 0.6 mg/dL (0.5-1.1); ESTIMATED GFR (MDRD EQUATION) > 60; POTASSIUM 3.1 mMol/L (3.7-5.1); SODIUM 136 mMol/L (135-145); TOTAL BILIRUBIN 0.6 mg/dL (0.0-1.5); TOTAL PROTEIN 6.8 g/dL (6.0-8.4)
--- NOTE | 2017-03-15 13:30 | NUR ---
Significant Event:Pt slept in till meal tray came, was dressed, earlier, assisted up in wheel chair 1-2 assist scoot/pivot method. Pt alert and orientated, forgetful @ times, aphasic, left field vision neglect. Reinforce for pt to remember to monitor her left hand and leg that are flaccid/weak. Pt complains of right hip discomfort, pain med given. Pt eats meals in dining room with encouragment and frequent checks. Pt has been pleasant and cooperative with plan of care. Follow up:pain control, encourge nutrition, alarms on for safety, fall @ risk.
--- NOTE | 2017-03-16 03:36 | NUR ---
Significant Event: tylenol given at 0023 for l) leg pain, patient had moved self in bed and l) leg was twisted. repositioned with assist. up to bathroom feels urge to void then unable to void. denies pain or burning when urinated earlier in day. bladder scan done at 2240, showed 211 ml. transfers with 2 assist. vss, no temp. l) sided weakness. Follow up:
[2017-03-16 06:57] LABS: BILIRUBIN URINE NEGATIVE (NEGATIVE); BLOOD URINE 10 /UL (NEGATIVE); GLUCOSE URINE NEGATIVE (NEGATIVE); KETONE URINE NEGATIVE (NEGATIVE); LEUKOCYTES URINE 500 /UL (NEGATIVE); NITRITE URINE POSITIVE (NEGATIVE); PROTEIN URINE 15 mg/dL (NEGATIVE); UROBILINOGEN URINE NORMAL (NORMAL)
[2017-03-16 07:03] LABS: COLOR URINE YELLOW (YELLOW); TURBIDITY URINE 2+ (CLEAR)
[2017-03-16 07:05] LABS: WBC URINE FULL FIELD #/HPF (NEGATIVE)
[2017-03-16 07:06] LABS: BACTERIA URINE MANY (NEGATIVE); EPITHELIAL URINE 0-2 #/HPF (NEGATIVE); RBC URINE 0-2 #/HPF (NEGATIVE); WBC CLUMPS URINE MODERATE (NEGATIVE)
--- NOTE | 2017-03-16 08:20 | NUR ---
A-NUTRITION F/U 03/16 WT (WHEELCHAIR WT): 44.9 KG. WT IS UP FROM 2.2 KG. LABS: REVIEWED: PREALB 32.0; UP FROM 30.0 MEDS: KCL DIET RX: REGULAR. ENSURE CLEAR QD, ENSURE PUDDING BID, MAGIC CUP QD. PO INTAKE OF MEALS HAS BEEN 0-50%; AVG IS 38%. INTAKE OF SUPPLEMENTS 50-100% FOR THE MOST PART. EST NUTR NEEDS: 3405-5400 KCALS AND 51-16 GM PROTEIN D-AT NUTRITION RISK W/INADEQUATE ORAL INTAKE R/T DECREASED APPETITE AEB INTAKE RECORDS. I-CONTINUE W/CURRENT SUPPLEMENTS M/E-GOAL: PO INTAKE >/=50% BY NEXT F/U 1)F/U PO INTAKE, SUPPLEMENT, WT, AND POC IN 3-5 DAYS 2)ASSIST NEEDED
--- NOTE | 2017-03-16 14:11 | NUR ---
D: TR progress note for 03/16/17. I: Pt seen for 2 units at 1230 for fine motor skills, leisure education, coordination, visual scanning, pain/stress management, coping strategies and functional transfers. R: Pt seen for functional skills building working on stain glass painting task for fine motor skills, visual scanning, pain/stress management, and coping strategy to increase independence with all task. Pt had C/o back pain prior to session, transferred from to/from [facility] chair min assist with cues for scanning. Pt independent with decision making for color choices and creativity with continued vision problems AEB cues for scanning L) due to neglect. Pt dependent with opening paint container but min > SBA for painting with good attention to task. Education continued on coping skills and stress/pain management along with promoting recovery. P: Will continue to see to address goals and plan of care.
--- NOTE | 2017-03-16 17:43 | NUR ---
Significant Event:A/O X 3, flat affect. R) side visual neglect. R) upper extremity flaccidity, L) lower extremity weakness. 1 Assist to stand and pivot transfer. Left leg tends to get twisted with pivots. Frequency and urgency. Diagnosed with a new UTI, started on antibiotics. Eating prunes and started on senna today. 1 [place] for back pain, due to patient twisting when she pivots. Follow up: Should eat in dining room, but eats in room while family visits today.
--- NOTE | 2017-03-17 04:00 | NUR ---
Significant Event:Up with 1-2 assist, gait belt and w/c pivot transfer. Left leg weak with left knee flexing at times and left foot needs some assist to turn with the pivot. Left arm flaccid, no finger movement or handgrasp, does have some gross uncontrolled type motor movement to left arm. Reports tingling to left leg, numb with left arm. Facial droop present with left visual neglect. Speaks words, but not real verbal. Flat affect. Did void large amt of 500 ml x 1, then other times does only drops. Aloe applied to slightly red coccyx and did have pt turn in bed with pillows for positioning. Rates discomfort to back at 3, denies need for pain med. Last bm on . Poor oral intake of 200 ml. Takes meds whole with applesauce. Follow up:Do NOT leave alone in bathroom, needs verbal cues and guidance for safe transfers. Needs supervision with meals.
--- NOTE | 2017-03-17 10:57 | NUR ---
D: TR progress note for 03/17/17. I: Pt seen for 2 units at 1001 for fine motor skills, leisure education, coordination, visual scanning, pain/stress management and coping strategies. R: Pt seen for functional skills building with continued work on stain glass painting task for fine motor skills, visual scanning, pain/stress management, and coping strategy to promote independence with leisure task. Pt's son present for session, education continued on use of leisure involvement to promote scanning and coping skills. Pt independent with decision making for color choices with continued vision deficits needing mod cues for missed areas. Pt dependent with opening paint container and SBA with painting. Pt mood flat with low initiation to staff and son with max cues for scanning L). P: Will continue to see to address goals and plan of care.
--- NOTE | 2017-03-17 15:50 | NUR ---
Significant Event: Patient alert and oriented. Aphasic and forgetful. 1 assist pivot transfer. High fall risk. Do not leave alone in bathroom. Left arm is flaccid. Left leg is weak. Left neglect. OT shower and dress today. No void all shift. Attempted 5 times in the bathroom with urge to go but no void. Patient states she is feeling uncomfortable. Bladder scanned for 500ml. Called MD and straight cath x1 at 1500 for 600ml. Patient states she feels better after this.
--- NOTE | 2017-03-18 04:39 | NUR ---
Significant Event:Up with 1-2 assist with stand pivot transfer and use of gait belt/wheelchair. Does have difficulty with moving left foot during transfer, as well as left knee buckling--at times pt leans to the left more heavily than others. Bladder scan done x 1 after inability to void x 2, only 280 ml residual. Pushed fluids and later voided prior to midnight of good amt and bladder fullness was gone. Voided 2 addtl times. Gave suppository at 0300, has had large results of soft formed stool. Rated discomfort to rt hip at 3, denies need for pain med. Does have tingling to left leg/thigh area, dull sensation to left arm. Did have slight grasp with left hand, poor control of gross motor movement to left arm, flaccid with transfers. Left facial droop. Face drifts off towards the right. Requires verbal cues during transfers. Follow up:Safety with transfers r/t foot position, do NOT leave pt alone in br as is very impulsive and stands when staff isn't ready for her to.Enc po intake of food/fluids.
[2017-03-18 05:29] LABS: BLOOD UREA NITROGEN 13 mg/dL (6-24); CALCIUM 8.5 mg/dL (8.5-10.5); CHLORIDE 98 mMol/L (96-110); CO2 26 mMol/L (22-32); CREATININE 0.5 mg/dL (0.5-1.1); ESTIMATED GFR (MDRD EQUATION) > 60; SODIUM 132 mMol/L (135-145)
--- NOTE | 2017-03-18 19:47 | NUR ---
Significant Event: Pt c/o pain in back and requested a [place] at 0920, pain relif noted. Pt voided 3 times with no problems noted. Pt required verbal cues to do a scoot transfer. Pt required staff to help move or lift the left leg in and out of bed. Pt takes her pills whole one at a time in a bite of pudding or yogurt. Pt had a family member here with her all day. Dr. Bill was called this a.m. to inform him of her sodium level, no new orders received. Pt able to voice needs. Follow up:
--- NOTE | 2017-03-19 04:18 | NUR ---
Significant Event:Alert to self. Reorients to time and place. 1 assist pivot or scoot transfer. Left hand/arm raises but barely any grasp. Left leg tends to buckle with transfers, moves with difficulty. Voided X3 feels the need to have BM but flatus thus far. Meds whole with water. Denies pain, numbness or tingling at this time. Call bulb in reach. Bed alarm on. Follow up:Transfers unsteady, left knee not stabilizing. Tends to flop backward on the bed at times.
[2017-03-19 05:57] LABS: ALBUMIN 3.5 gm/dL (3.5-5.0); ALK PHOS 45 IU/L (33-138); ALT 67 IU/L (12-78); ANION GAP 12.2 (10.0-19.0); AST 43 IU/L (10-40); BLOOD UREA NITROGEN 13 mg/dL (6-24); CALCIUM 8.6 mg/dL (8.5-10.5); CHLORIDE 99 mMol/L (96-110); CO2 25 mMol/L (22-32); CREATININE 0.5 mg/dL (0.5-1.1); ESTIMATED GFR (MDRD EQUATION) > 60; POTASSIUM 4.2 mMol/L (3.7-5.1); SODIUM 132 mMol/L (135-145); TOTAL BILIRUBIN 0.5 mg/dL (0.0-1.5); TOTAL PROTEIN 6.6 g/dL (6.0-8.4)
--- NOTE | 2017-03-19 08:24 | NUR ---
A - NUTRITION F/U. NO NEW WT. LAST WT 03/16 44.9 KG. NA+ 132, GLU 84, BUN/LIBRARY SERIALS ASSISTANT 13/0.5, ALB 3.5. DIET: REGULAR W/ MAGIC CUP AND ENSURE CLEAR QD AND ENSURE PUDDING BID. INTAKE BITES TO 50%. D - AT RISK W/ UNDERWEIGHT R/T INADEQUATE ORAL INTAKE AEB BMI 17.0. I - GOAL: 50% OR BETTER INTAKE BY DISMISSAL. M/E - WILL CONT TO MONITOR ORAL INTAKE AND WT. F/U IN 3-5 DAYS.
--- NOTE | 2017-03-19 12:07 | NUR ---
D: TR Progress Note for 03/19/17. I: Pt seen for 2 units at 1000 for community integration skills building, functional transfers, and safety awareness. R: Pt seen for functional skills building working on mobility, safety, and functional transfers in anticipation for discharge back into community. Pt transferred to/from vehicle CGA doing scoot/pivot transfers. Pt was min assist for LE management with seat surface adapted using trash bag to ease task. Pt tolerated ride with no C/o nausea, pain, or discomfort working on visual scanning task, max cues for scanning L). P: Will continue to see to address goals and plan of care.
--- NOTE | 2017-03-19 15:32 | NUR ---
Significant Event: Pt up in room with stand pivot, linda. fair. Continue to guard left knee. Na+ 134 today, started on 1200ml fluid restriction. MInimal c/o pain, intermittent discomfort to left ankle. Pt rested off/on t/o day. Pt cooperative with cares. Follow up: activity, safety, alarms in use
--- NOTE | 2017-03-20 04:16 | NUR ---
Significant Event:A/O some forgetful moments noted. Transfers 1-2 assist pivot or scoot transfer with gaitbelt. Left leg weak, knee tends to buckle with pivot at times. Left hand light grasp, able to lift arm. Meds whole with water. Equality for left foot pain at 1140, sleeping at reassessment. Fluid restriction 1200nL/day. REfused shower again. Bed alarm on. Call light within reach. Follow up:Alarms for safety. Shower or bag bath?
--- NOTE | 2017-03-20 19:13 | NUR ---
Significant Event:Pt alert and orientated with some forgetfullness. Continues to have left vision field deficiet, cue and reinforce. Transfers 1-2 assist, gaitbelt, stand/scoot pivot, guard left knee. Pt complained of left leg hurting again today, no visual redness or hot to touch sites. Dr Hwang ordered doppler for DVT. Dopler came back negative, resumed previous orders and activity. Pt rested in bed majoriety of the day, uses call light for BR. Up in wheel chair when family here @ intrvals. Pt has been plesant and cooperative with plan of care. Follow up:Pain control,alarms on for fall @ risk. On 1200 ml fld restriction.
--- NOTE | 2017-03-21 02:52 | NUR ---
Significant Event: Patient is alert and mostly oriented, is forgetful. Up 1-2 assist scoot/pivot transfer. Left side is weak. Has a visual deviation to the right. Has some movement to her left arm and leg but tends to neglect that side. Calls alot to void but is unable. Nursing needs to encourage her to sit for awhile to try to void. Uses call light appropriatly. Do not leave alone in BR and needs to be alarmed at all times.Is now on a 1200 mls fluid restriction. Follow up:
[2017-03-21 05:48] LABS: ANION GAP 11.2 (10.0-19.0); BLOOD UREA NITROGEN 18 mg/dL (6-24); CALCIUM 8.9 mg/dL (8.5-10.5); CHLORIDE 99 mMol/L (96-110); CO2 27 mMol/L (22-32); CREATININE 0.6 mg/dL (0.5-1.1); ESTIMATED GFR (MDRD EQUATION) > 60; POTASSIUM 4.2 mMol/L (3.7-5.1); SODIUM 133 mMol/L (135-145)
--- NOTE | 2017-03-21 11:31 | NUR ---
D: Nutrition Partner Team Conference Follow up for 03/16/17 I: Input from patient/family R: Met with: patient, family, Dr. Hwang, Gilda Amaya SENIOR PYTHON DEVELOPER Discussed rehab plan, patient progress, discharge plan and estimated length of stay of d/c planned in approx. 3 weeks. Patient/Family Preference: Patient is in agreement. Anticipated discharge disposition: will need 24 hour supervision in either a home setting or SNF. Education completed: Education was completed with patient regarding length of stay, progress in therapy and d/c plan. Assessment/Recommendation: Team recommends d/c in approx. 3 weeks. P: Case Coordination: iNcky is a 72 year old woman from [place], [place] admitted after a stroke. She has good family support. Will follow and assist as needed.
--- NOTE | 2017-03-21 13:16 | NUR ---
Significant Event:No changes in assessment. Family here @ intervals, good support for pt. Assist pt with left vision field deficiet, cue and reinforce. Continues to transfer 1-2 assist, gait belt, guard left knee. Pt has not requested any PRN pain med for left leg as of this time this shift, note MAR. Pt up in wheel chair @ intervals, out for short walk with family. Uses call light for needs. Pt has been pleasant and cooperative with plan of care. Follow up: pain control, alarms on for fall @ risk. Continues on 1200 fld restriction.
--- NOTE | 2017-03-22 02:11 | NUR ---
Significant Event: Patient is alert and oriented can be forgetful. VSS. up 1-2 assist with GB scoot/pivot transfers. Left side weakness tend to neglect her left side and has a left visual deficit. Calls alot to void but at times us anable to. She needs to be encouraged to sit long enough to void (running water does help). Uses call light appropriatly, but needs to be alarmed for safety can be spontaous do not leave alone in the bathroom. Is now on a 1200 mls fluid restriction. Takes meds in apple sauce. Follow up:
[2017-03-22 06:31] LABS: ALBUMIN 3.5 gm/dL (3.5-5.0); ALK PHOS 45 IU/L (33-138); ALT 50 IU/L (12-78); ANION GAP 9.9 (10.0-19.0); AST 31 IU/L (10-40); BLOOD UREA NITROGEN 15 mg/dL (6-24); CALCIUM 8.9 mg/dL (8.5-10.5); CHLORIDE 100 mMol/L (96-110); CO2 27 mMol/L (22-32); CREATININE 0.6 mg/dL (0.5-1.1); ESTIMATED GFR (MDRD EQUATION) > 60; POTASSIUM 3.9 mMol/L (3.7-5.1); SODIUM 133 mMol/L (135-145); TOTAL BILIRUBIN 0.5 mg/dL (0.0-1.5); TOTAL PROTEIN 6.7 g/dL (6.0-8.4)
--- NOTE | 2017-03-22 18:56 | NUR ---
Significant Event: Pt c/o pain in l)leg, rubbed leg prior to patient getting up with relief noted. Pt reported some numbness/tingling to l)arm and leg. Pt laid down to rest between therapies. Pt reported that she is just very tired from therapy. Pt had 375 mls in oral fluids in this shift. Pt did not have a bowel movement this shift, voided 350 mls. Follow up:Call Dr. Bill if Na is still low.
--- NOTE | 2017-03-23 05:23 | NUR ---
Significant Event:Up with pivot/scoot transfer, difficult for pt to grasp scooting as she is used to pivot and without verbal/tactile cues will move rapidly with changing positions. Tingling to left leg, occas tingling to left arm. 1200 ml fluid restriction--only took in 200 ml for this shift, voided x 2, last bm on the 4th. Did void also after 0500 for your credit--had not voided since hs and bladder scan only revealed 358 ml at 0400. Weak left leg, flaccid left arm with minimal handgrasp, does have left sided neglect and usually has left arm hanging from shoulder, looks off to the right with head. Takes meds whole in applesauce. Follow up:Safety measures--do NOT leave alone in bathroom! Meds whole in applesauce. Is interested in leaving any parameters on residual/voidings?
--- NOTE | 2017-03-23 13:40 | NUR ---
Significant Event: Up with 1A scoot transfer. Patient does not scoot very well usually ends up more of a stand pivot. Needs lots of cues. Denies pain this shift. Voided 350 this shift. Last BM 03/21. Up to bathroom to attempt voiding multiple times with no results. Left arm flaccid. Can grasp hand but very weak. Meds whole in applesauce. Cooperative with cares. Follow up:
--- NOTE | 2017-03-23 14:19 | NUR ---
D: TR progress note for 03/23/17. I: Pt seen for 2 units at 1334 for fine motor skills, leisure education, visual scanning, pain/stress and coping strategies. R: Pt seen for functional skills building with continued work on stain glass painting task for visual scanning, attention to task, decision making and coping strategy to promote independence with leisure task post discharge. Pt's daughter present for last half of session. Pt SBA with decision making for color choices due to concerns with project outcome, dependent with opening paint container but SBA with painting with project being repositioned often to increase pt's scanning to identify missed areas. Education continued on use of leisure task to promote recovery post discharge. P: Will continue to see to address goals and plan of care.
--- NOTE | 2017-03-23 14:45 | NUR ---
A - NUTRITION FOLLOW-UP. ATTEMPTED TO VISIT PATIENT BUT WORKING WITH THERAPIES. PER RECORD, WEIGHT STABLE X6 DAYS BUT 6# WEIGHT LOSS IN 1 MONTH. LABS: PRE-ALB 28 (DOWN FROM 30 ON 03/15), NA 133. NO NEW MEDS. DIET: REGULAR W/ 1200ML FLUID RESTRICTION. YOGURT 1X/DAY; MAGIC CUP BID; ENSURE CLEAR 1X/DAY; ENSURE PUDDING BID. INTAKE 13% X11 MEALS, USUALLY REFUSED TO 25%, 100% X1 MEAL. SUPPLEMENT RECORDED 75% X1. EST NEEDS: [id number] KCAL, 51-61 GRAMS PROTEIN, FLUID NEEDS: PER MD D - INADEQUATE ORAL INTAKE RELATED TO DECREASED APPETITE EVIDENCED BY PO 13% X11 MEALS. I - 1) CONTINUE WITH CURRENT NUTRITION SUPPLEMENT/SNACK. 2) IF EN IS DESIRED, RECOMMEND JEVITY 1.5 AT 40ML/HR TO PROVIDE 1440 KCAL, 61 GRAMS PROTEIN, 730ML FREE WATER. M/E - GOAL: PT WILL BE ABLE TO TOLERATE >50% OF MEALS AND AT LEAST TWO ORAL SUPPLEMENT/SNACK PER DAY IN 2-4 DAYS.
[2017-03-24 05:48] LABS: ANION GAP 14.4 (10.0-19.0); BLOOD UREA NITROGEN 10 mg/dL (6-24); CALCIUM 8.8 mg/dL (8.5-10.5); CHLORIDE 97 mMol/L (96-110); CO2 26 mMol/L (22-32); CREATININE 0.6 mg/dL (0.5-1.1); ESTIMATED GFR (MDRD EQUATION) > 60; POTASSIUM 4.4 mMol/L (3.7-5.1); SODIUM 133 mMol/L (135-145)
--- NOTE | 2017-03-24 05:51 | NUR ---
Alert and oriented. Does better now with one person scoot transfer. Balance better when standing to assist with brief. Denies pain. Voided 600ml in one voiding, although up 5 times thru the night. Two very small BMs. Takes meds whole in applesauce.
--- NOTE | 2017-03-24 11:29 | NUR ---
D: TR progress note for 03/24/17. I: Pt seen for 1 unit for education on leisure education, stress/pain management, and coping strategies . R: Pt seen for functional skills building working on relaxation techniques, stress/pain management, continued education on coping skills using animals for Animal Assisted Therapy. Pt transferred WC > bed doing scoot type transfers CGA, min assist for LLE management and CGA for bed mobility. Pt interacted independently with animals and volunteers initiated comments and scanning bilaterally with bright affect. P: Will continue to see to address goals and plan of care.
--- NOTE | 2017-03-24 12:10 | NUR ---
Significant Event: Pt up in room with scoot/stand pivot to wc/ and toilet. Elma. well, needs assistance with LLE. MOM given this AM for constipation, Moderate results. Pt reported her stomach felt better. Pt denied pain most of the day. Pt requests BR frequently. Also requests to lay down for short times in between sessions. Pt cooperative with cares. Flat affect at times. Follow up: activity, safety, alarms in use when family not present, do not leave alone in the BR.
--- NOTE | 2017-03-25 04:37 | NUR ---
Alert and oriented. Calls for assistance approx every 2 hrs to bathroom and voided only twice this shift for 300 total out. Took milk of mag again at 7 pm last night. Had only small hard BM at 0300. May want to repeat MOM this morning. Doing better with toilet transfers.
--- NOTE | 2017-03-25 11:50 | NUR ---
A - NUTRITION F/U. NO NEW LABS. NO NEW WT; LAST WT 97# ON 03/22. DIET: REGULAR W/ A VARIETY OF SUPPLEMENTS. INTAKE 0-50% BUT AVERERAGE UP TO 25%. D - INADEQUATE ORAL INTAKE R/T DECREASED APPETITE AEB INTAKE RECORD. I - GOAL: 50% OR BETTER INTAKE BY DISMISSAL. M/E - 1) PO INTAKE REMAINS INADEQUATE. CONSIDER TF W/ JEVITY 1.5 AT 40 ML/HR = 1440 KCALS, 61 GM PROTEIN, 730 ML FREE H20. 2) WILL F/U IN 2-4 DAYS.
--- NOTE | 2017-03-25 14:00 | NUR ---
D: Hoop Flaring Machine Operator Helper Team Conference Follow up for 03/23/17 I: Input from patient/family R: Met with: patient, family, Dr. Hwang, Gilda Amaya RETAIL PLANNING MANAGER Discussed rehab plan, patient progress, discharge plan and estimated length of stay of d/c planned in approx. 2 weeks. Patient/Family Preference: Patient is in agreement with this plan. Anticipated discharge disposition: SNF Education completed: Education was completed with patient regarding length of stay, progress in therapy and d/c plan. Assessment/Recommendation: Team recommends in approx. 2 weeks. P: Case Coordination: Nicky is a 72 year old woman from [place], [place] admitted after a stroke. Plan is to discharge to SNF in [place], [place] on d/c. Looking at d/c to [facility] in [place]. Faxed referral. Will follow and assist as needed.
--- NOTE | 2017-03-25 16:48 | NUR ---
Significant Event: Pt up to w/c and toilet with 1 assist, stand pivot, showing improvement. Denied pain. MOM given early this am, has had 3 Mod. results. Now bowels are on the loose side, had inc. loose stool this afternoon. BS are hyperactive. Pt takes meds whole with applesauce. Pleasant and cooperative with cares. Follow up: activity, safety, alarms in use, stay with pt in BR
--- NOTE | 2017-03-26 04:17 | NUR ---
Significant Event: Patient is alert and forgetful at times. VSS. Up one assist scoot/pivot transfer. Has had 2 BM's this shift and 3 during the day shift. Calls frequently to use the bathroom does not always void. Takes meds whole with applesauce. Denies pain or discomfort. Follow up: Alarm for safety. Do not leave alone in BR.
--- NOTE | 2017-03-26 11:46 | NUR ---
D: TR Progress Note for 03/26/17. I: Pt seen for 2 units at 1102 for community integration skills building, functional transfers, and safety awareness. R: Pt seen for functional skills building working on mobility, safety, and functional transfers in anticipation for discharge back into community. Pt transferred to/from vehicle CGA > min assist doing stand pivot with cues for safety and technique. Pt was SBA for BLE management with cues, extra time and seat surface adapted using trash bag to ease task. Pt tolerated ride with no C/o nausea, pain, or discomfort working on visual scanning task, continues to be max cues for scanning L). P: Will continue to see to address goals and plan of care.
--- NOTE | 2017-03-26 12:44 | NUR ---
Significant Event: ALERT AND ORIENTED X3. EXPRESSIVE APHASIA. UP 1 ASSIST SCOOT TRANSFER. FLACCID TO LEFT SIDE. UP TO BATHROOM OFTEN. MEDS WHOLE IN APPLESAUCE. VITALS STABLE ON ROOM AIR. DENIES PAIN. FEEDS SELF. FAMILY VISITED TODAY. TEDS ON. INCONTINENT OF BLADDER AT TIMES. COOPERATIVE WITH CARES. Follow up:
--- NOTE | 2017-03-27 04:35 | NUR ---
Significant Event: Patient is alert and forgetful. VSS. Up one assist scoot pivot transfers. Left side is very weak and with a left side visual deficit. Denies pain or discomfort. Has been calling frequently to use the bathroom then not voiding. Has been up all night. Patient was told last night she is on a 2 hr bladder training. This did work better. Takes meds in applesaGatheredtable. Follow up: @ hr bladder training. Alarm at all times for safety. Do not leave alone in BR.
[2017-03-27 06:19] LABS: ANION GAP 12.1 (10.0-19.0); BLOOD UREA NITROGEN 7 mg/dL (6-24); CALCIUM 8.8 mg/dL (8.5-10.5); CHLORIDE 99 mMol/L (96-110); CO2 26 mMol/L (22-32); CREATININE 0.6 mg/dL (0.5-1.1); ESTIMATED GFR (MDRD EQUATION) > 60; POTASSIUM 4.1 mMol/L (3.7-5.1); SODIUM 133 mMol/L (135-145)
--- NOTE | 2017-03-27 14:38 | NUR ---
Significant Event: Alert and oriented x 3. Up with 1A scoot transfer. Very weak to left side. Denies pain this shift. meds whole in applesauce. Family present this afternoon. 2 hour bladder training. Alarms at all times. Not to be left alone in the BR. 2 mod bm this shift. Coopeartive with cares. Follow up:
--- NOTE | 2017-03-28 01:47 | NUR ---
Significant Event:Up with one assist and scoot transfer, does more of a stand/pivot as it's difficult to get instructions across to her for understanding. Denies pain. Tingling to left foot. Left arm/leg weak, flaccid left arm with neglect to left side. Slight left sided facial drooping.Takes meds whole in applesauce. Remains on 1200 ml fluid restriction. Gave hs Metamucil, but did hold [place] due to 3 bm's on the 10th. Has remained continent, did refuse to attempt to void at 2230 after being awoken as stated she didn't need to go. Pt was able to get up at 0030 and voided good amt. Follow up:Toilet q 2 hrs for bladder training. Meds whole in applesauce.
--- NOTE | 2017-03-28 13:14 | NUR ---
Significant Event: Alert and oriented. Up with 1A scoot transfer. Denies pain. Numbness/ting to left leg. Left arm/leg weak. Meds whole in applesauce. Fluid restrict 1200ml. Bm x 2 this shift. 2 hour bladder training. Family present throughout the day. Cooperative with cares. Follow up:
--- NOTE | 2017-03-29 02:42 | NUR ---
Significant Event:Remains on 1200 fluid restriction, has remained at 1000 or less. Refused dinner, had ensure pudding only. Takes meds whole with applesauce. Denies pain, wore teds all night as had left leg discomfort on Wednesday--no further c/o since. Tingling to left hand/arm at times, very weak grasp after verbal cues given. Pt does initiate more conversation and responds with more interest. No edema. Has remained continent this shift. Was in bed around 1600 yesterday and requested to sleep by 1999. Left arm hangs from shoulder/flaccid with gross uncoordinated movement. To transfer via scoot method, but is difficult for her to grasp and often will do a pivot transfer__monitor left foot/ankle with transfers. Follow up:Continue 2 hr bladder training. Give verbal/tactile reminders with transfers. Remain with pt in bathroom as pt impulsive and will stand/move before staff is ready for her to do so.
[2017-03-29 06:33] LABS: ALBUMIN 3.7 gm/dL (3.5-5.0); ALK PHOS 45 IU/L (33-138); ALT 34 IU/L (12-78); ANION GAP 11.8 (10.0-19.0); AST 23 IU/L (10-40); BLOOD UREA NITROGEN 10 mg/dL (6-24); CALCIUM 9.1 mg/dL (8.5-10.5); CHLORIDE 99 mMol/L (96-110); CO2 23 mMol/L (22-32); CREATININE 0.6 mg/dL (0.5-1.1); ESTIMATED GFR (MDRD EQUATION) > 60; POTASSIUM 3.8 mMol/L (3.7-5.1); SODIUM 130 mMol/L (135-145); TOTAL BILIRUBIN 0.5 mg/dL (0.0-1.5); TOTAL PROTEIN 6.8 g/dL (6.0-8.4)
--- NOTE | 2017-03-29 10:02 | NUR ---
A-NUTRITION F/U (+)BM. CBW: 43.4 KG. WT FROM LAST F/U WAS 44.1 KG. LABS: NA 130, K+ 3.8, GLU 91, BUN 10, LITHOGRAPHIC PHOTOGRAPHER 0.6, ALB 3.7, PREALB 27.0 NO NEW MEDS DIET RX: REGULAR DIET W/1200 ML FLUID RESTRICTION. MAGIC CUP BID, ENSURE PUDDING BID AND ENSURE CLEAR QD. PO INTAKE OF MEALS HAS BEEN REF-100% SINCE LAST F/U; THE AVG IS 32%. THIS IS UP FROM 25% LAST F/U. TAKING SUPPLEMENTS WELL. EST NUTR NEEDS: [id number] KCALS AND 51-61 GM PROTEIN D-AT NUTRITION RISK W/INADEQUATE ORAL INTAKE R/T DECREASED APPETITE AEB INTAKE RECORDS. I-1)CONTINUE W/CURRENT INTERVENTIONS 2)IF DESIRED, RECOMMEND PLACING A DOBHOFF AND STARTING JEVITIY 1.5 AT A GOAL RATE OF 40 ML/HR. M/E-GOAL: PO INTAKE >/=50% BY DISCHARGE 1)F/U PO INTAKE, SUPPLEMENT, WT, AND POC IN 3-5 DAYS 2)ASSIST NEEDED
--- NOTE | 2017-03-29 16:11 | NUR ---
Significant Event: PT DENIED PAIN. PT VOIDING WITH NO PROBLEMS NOTED. PT SLOW TO RESPOND, BUT RESPONDS APPROPRIATELY. PT A/O X 3. PT NEEDS VERBAL CUES ON SCOOTING, TRIES TO STAND PIVOT BUT STILL NOT ABLE TO MOVE L)LEG VERY WELL. PT ANXIOUS TO DO MORE ON HER OWN AND WISHES TO GO HOME SO SHE CAN TRY. REMINDED PATIENT THAT WE DONT WANT HER TO FALL AND WE NEED TO KEEP HELPING WHILE HER L)SIDE IS IMPROVING. PT REQUIRES L)LEG TO BE LIFTED INTO BED WHEN LAYING HER DOWN. PT IS ABLE TO MOVE L)ARM AGAINST GRAVITY AND GRASP IS VERY WEAK. Follow up:
--- NOTE | 2017-03-30 04:09 | NUR ---
Significant Event: Patient is alert and oriented. Can be forgetful. VSS. Up one assist with GB/ Scoot transfers. Needs reminded to scoot. Must be alarmed for safety, do not leave alone in BR. Left side effected, left arm and leg have some movement but are weak. Has a left visual deficit, looks to the right most of the time. Takes meds in applesauce. Has been having some c/o of pain to her left leg. Was given Tylenol for this at 2330. Calls frequently to void has been started on a 2 hr bladder training. Follow up: Alarm for safety. Remind to scoot transfer.
[2017-03-30 06:25] LABS: ALBUMIN 3.3 gm/dL (3.5-5.0); BLOOD UREA NITROGEN 11 mg/dL (6-24); CALCIUM 8.7 mg/dL (8.5-10.5); CHLORIDE 100 mMol/L (96-110); CO2 26 mMol/L (22-32); CREATININE 0.6 mg/dL (0.5-1.1); ESTIMATED GFR (MDRD EQUATION) > 60; MAGNESIUM 1.7 mg/dL (1.8-2.6); PHOSPHORUS 3.8 mg/dL (2.5-4.9); SODIUM 133 mMol/L (135-145)
--- NOTE | 2017-03-30 10:43 | NUR ---
D: TR progress note for 03/30/17. I: Pt seen for 2 units at 903 for community integration skills building, functional transfers, and family training. R: Pt seen for functional skills building working on mobility, safety, and family training in anticipation for pt resume community involvement with family. Pt's daughter present for session, taken outdoors for community re-entry skills building and training. Pt's daughter provided hands on assistance and Therapist SBA > modeling/demonstrating as needed. Education and demonstration done on WC safety with steep ramps, uneven terrain how to ascend/descend curb and exit/entry building when no automatic handicapped accessible door available. Discussed safety with thresholds and raised surfaces along with reviewed back safety with daughter. Discussed car transfers with family training to begin later this pm. P: Will continue to see to address goals and plan of care.
--- NOTE | 2017-03-30 12:52 | NUR ---
D: TR progress note for 03/30/17. I: Pt seen for 2 units at 1100 for community integration skills building, functional transfers, safety awareness and family training. R: Pt seen for functional skills building working on mobility, transfers, and community skills in anticipation for discharge back into community with spouse. Pt's daughter present for session with Therapies (TR/OT) completing first transfers and daughter completing (2) transfers with Therapies SBA for safety and cues as needed. Pt completed all transfers CGA > min assist with cues for hand placement, technique and safety. Pt was SBA with verbal and tactile cues for BLE management and positioning self for all transfers. Pt/daughter had no questions or concerns at this time, daughter demonstrated competency with vehicle transfers. P: Will continue to see to address goals and plan of care.
--- NOTE | 2017-03-30 17:28 | NUR ---
Significant Event: A/O BUT FORGETFUL TRANSFERS WITH 1 ASSIST UNABLE TO MOVE LEFT SIDE..ON BLADDER PROGRAM Q 2 HR. NO BM.. ..TAKES PILLS IN APPLESAUCE.DAUGHTER AR BEDSIDE. Follow up:
--- NOTE | 2017-03-31 11:39 | NUR ---
D: TR progress note for 03/31/17. I: Pt seen for 2 units at 1030 for community integration skills building, functional transfers, safety awareness and family training. R: Pt seen for functional skills building working on mobility, transfers, and community skills in anticipation for discharge back into community with family. Pt's daughter/son present for session, transferred into son's vehicle with family providing all hands on assistance and Therapies (TR/OT) SBA for safety and cues as needed for technique. Pt completed transfers 3x CGA > min assist with cues for hand placement, technique and safety. Pt was SBA > min assist for BLE management and positioning self for all transfers. P: Will continue to see to address goals and plan of care.
--- NOTE | 2017-03-31 19:28 | NUR ---
Significant Event:PATIENT ALERT AND ORIENTED THIS SHIFT. VSS. TRANSFERS WITH 1 ASSIST, GAIT BELT PIVOT/SCOOT TRANSFER. HAS DENIED PAIN THIS SHIFT. FAMILY AT BEDSIDE MOST OF THE DAY. EATS MEALS IN HER WHEELCHAIR. ATE SUPPER WITH HER FAMILY DOWN STAIRS TONIGHT. IS FORGETFULT AT TIMES. LIKES TO LAY DOWN BETWEEN THERAPY BUT IS ENCOURAGED MUCH POSSIBLE TO STAY UP WHEN SHE CAN. NO OTHER COMPLAINTS. Follow up:
--- NOTE | 2017-04-01 02:25 | NUR ---
Significant Event: Transfers with 1 assist using scoot/pivot--monitor left foot/ankle with transfers. Pt has difficulty doing a scoot. Needs verbal cues with transfers and reminders not to get up from toilet seat until staff is ready to assist--impulsive, don't leave alone on toilet. Use alarms in bed and in chair for safety. Remains continent of urine, voids q 2 hrs. Left side weak, moves left leg/foot but has difficulty bearing weight and maneuvering transfer. Slight weak grasp with left hand, wiggles left fingers and able to flex left arm at elbow and lift arm upwards at shoulder. Some tingling to left arm/hand. Fluid restriction of 1200 ml. Follow up:Don't leave unattended in br. Bladder training q 2 hrs--hold pt to these hrs.
--- NOTE | 2017-04-01 12:40 | NUR ---
D: Internal Carver Team Conference Follow up for 03/30/17 I: Input from patient/family R: Met with: patient, family, Gilda Prater RESIDENTIAL RECYCLE DRIVER Discussed rehab plan, patient progress, discharge plan and estimated length of stay of d/c planned in 7-10 days. Patient/Family Preference: patient and family are in agreement. Anticipated discharge disposition: [facility] in [place], [place]. Education completed: Education was completed with patient and daughter regarding length of stay, progress in therapy and discharge plan. Assessment/Recommendation: Team recommends d/c in approx. 7-10 days. P: Case Coordination: Working on discharging Nicky to [facility] in [place], [place]. Information and admission packet was faxed to them. Still waiting on answer. Plan is to d/c next week.
--- NOTE | 2017-04-01 14:36 | NUR ---
A - NUTRITION FOLLOW-UP 2# WT LOSS IN 8 DAYS NOTED PER RECORD. PLAN TO DISCHARGE NEXT WEEK. LABS: NA 133, ALB 3.3, MG 1.7, PRE-ALB 27. NEW MEDS: EFFEXOR DIET: REGULAR W/ 1200ML FLUID RESTRICTION W/ ENSURE CLEAR QDAY, MAGIC CUP BID; ENSURE PUDDING BID. INTAKE MUCH IMPROVED, 77% X9 MEALS, TAKING SUPPLEMENT WELL, 100% MOST OF THE TIME. ATTEMPT TO VISIT PT BUT NOT IN ROOM. PT'S MENU REVIEWED, USUALLY NO DINNER, SANDWICH FOR LUNCH, SMALL AMOUNT NOTED. PER RN, DID OBSERVE PT EATING FOOD ON TRAY. EST NEEDS: [id number] KCAL, 51-61 GRAMS PROTEIN, FLUID NEEDS: PER MD D - INADEQUATE ORAL INTAKE AT TIMES RELATED TO ALTERATION IN APPETITE EVIDENCED BY PT'S MENU ORDERED AND VARIABLE APPETITE SINCE ADMIT. I - CONTINUE W/ CURRENT ORAL SUPPLEMENTS. M/E - GOAL: PT WILL CONTINUE TO TOLERATE >75% OF MEALS AND AT LEAST TWO ORAL SUPPLEMENTS PER DAY IN 5-7 DAYS.
--- NOTE | 2017-04-01 16:01 | NUR ---
Significant Event: Scoot transfers with one assist and gaitbelt. Voids without difficulty. L) side weak. 1200mL fluid restriction. Eats meals sitting in wheel chair in room. Grandson in room motst of shift. Alarms for safety as patient can be forgetul. Follow up:
--- NOTE | 2017-04-02 03:13 | NUR ---
Significant Event: UP TO BATHROOM EVERY 2 HOURS DURING NIGHT TO VOID. VOIDING WELL. LEFT SIDED WEAKNESS. DO NOT LEAVE ALONE IN BATHOOM. NEEDS REMINDERS TO NOT GET UP FROM TOILET SEAT WITHOUT STAFF. TRANSFERS WITH 1 ASSIST. DOES POORLY WITH SCOOT TRANSFER, DOES STAND PIVOT. FAMILY WOULD LIKE A PASS FOR WEEKEND. DENIES PAIN. Follow up:
[2017-04-02 05:42] LABS: ANION GAP 9.2 (10.0-19.0); BLOOD UREA NITROGEN 14 mg/dL (6-24); CALCIUM 8.8 mg/dL (8.5-10.5); CHLORIDE 101 mMol/L (96-110); CO2 27 mMol/L (22-32); CREATININE 0.6 mg/dL (0.5-1.1); ESTIMATED GFR (MDRD EQUATION) > 60; POTASSIUM 4.2 mMol/L (3.7-5.1); SODIUM 133 mMol/L (135-145)
--- NOTE | 2017-04-02 17:02 | NUR ---
Significant Event:Is A/O.Has partial wt.bearing Lt.side & full on Rt.Sl.Rt.facial droop.Takes pills in applesauce.On fld restriction.Has sore Lt.side mouth.Do not leave alone in bathroom.Have alarms at all times. Follow up:
--- NOTE | 2017-04-03 04:21 | NUR ---
Significant Event:pt alert and oriented x3. pleasant with staff and cares. up with 1 assist pivot to wheelchair. does well. does have left sided weakness. contient of bowel and bladder. 2 large voids. pt takes medication whole with no complications noted. denies pain when asked. will be going out with family today around 10:30am. son will pick her up. uses call light approp. Follow up:
--- NOTE | 2017-04-03 16:30 | NUR ---
Significant Event: Pt went on outing with family today. Pt remains on fluid restriction, Na+ 133. Pt denied pain. Pt pleasant and cooperative with cares. No BM today. C/O slight constipation this am but refused prn offers. Follow up: activity, safety, alarms in use, stay with pt in BR
--- NOTE | 2017-04-04 04:13 | NUR ---
Significant Event: DENIES C/O PAIN. UP TO BATHROOM WITH WHEELCHAIR AND 1 ASSIST, TRANSFERS FAIR. VOIDS WELL. NO BM TONIGHT. DID TAKE MOM AT HS. LEFT SIDE WEAKNESS, SLIGHT LT HAND GRASP. DO NOT LEAVE ALONE IN BATHROOM, NEEDS REMINDERS TO WAIT FOR STAFF BEFORE GETTING OFF TOILET. WANTING DAY PASS AGAIN TODAY. Follow up:
--- NOTE | 2017-04-04 15:37 | NUR ---
Significant Event: Pt up in room with pivot transfer to w/c and toilet with 1 assist, linda well. Pt quick at times and safety reinforced as she will stand at times and not have w/c locked. Pt denied pain. MOM given last noc with multiple small BM results. Pt denied pain. Pt is going on another outing with family at 1630 to watch granddaughter play soccer. Pt in good spirits today. Pt pleasant and cooperative with cares. Follow up: activity, safety, outing with family
--- NOTE | 2017-04-05 04:12 | NUR ---
Significant Event: denies pain. left side weakness, transfers with 1 assist pivotts to wheelchair. has been continent of urine. went on outing yesterday. happy affect, anxious to get closer to home for further therapies. do not leave alone in bathroom. Follow up:
[2017-04-05 07:07] LABS: ALBUMIN 3.2 gm/dL (3.5-5.0); ALK PHOS 41 IU/L (33-138); ALT 25 IU/L (12-78); ANION GAP 12.9 (10.0-19.0); AST 21 IU/L (10-40); BLOOD UREA NITROGEN 13 mg/dL (6-24); CALCIUM 8.5 mg/dL (8.5-10.5); CHLORIDE 103 mMol/L (96-110); CO2 22 mMol/L (22-32); CREATININE 0.5 mg/dL (0.5-1.1); ESTIMATED GFR (MDRD EQUATION) > 60; POTASSIUM 3.9 mMol/L (3.7-5.1); SODIUM 134 mMol/L (135-145); TOTAL BILIRUBIN 0.3 mg/dL (0.0-1.5); TOTAL PROTEIN 6.2 g/dL (6.0-8.4)
--- NOTE | 2017-04-05 13:42 | NUR ---
A-NUTRITION F/U CBW; 44.5 KG; WT STABLE LABS: NA 134, K+ 3.9, GLU 84, BUN 13, ADMITTING COUNSELOR 0.5, ALB 3.2, PREALB 26.0 PT IS ORDERING MORE AT MEALS; NO SKIPPING OR REFUSING DINNER SINCE LAST F/U. DIET RX: REGULAR W/1200 ML FLUID RESTRICTION. RECEIVES ENSURE PUDDING BID, MAGIC CUP BID, AND ENSURE CLEAR QD. PO INTAKE OF MEALS IS BITES-100%; AVG IS 65%. TAKING SUPPLEMENTS 50-100% EST NUTR NEEDS: 3924-2710 KCALS AND 51-61 GM PROTEIN D-AT NUTRITION RISK W/INADEQUATE ORAL INTAKE R/T DECREASED APPETITE AEB INTAKE RECORDS. I-CONTINUE W/CURRENT SUPPLEMENTS M/E-GOAL: PO INTAKE >/=50% FOR DURATION OF ADMIT 1)F/U PO INTAKE, SUPPLEMENT, WT, AND POC IN 3-5 DAYS. 2)ASSIST NEEDED
--- NOTE | 2017-04-05 13:43 | NUR ---
Significant Event: Patient alert and oriented. Forgetful at times. Left sided weakness and neglect. Fluid restriction. Shower with OT today. Follow up:
--- NOTE | 2017-04-06 03:32 | NUR ---
Significant Event: Patient is alert and oriented. VSS. Up one assist with GB/stand pivot transfer. Left sided weakness and neglect, but getting stronger. Takes meds with applesauce. Denies pain or discomfort. Continues on a 1200 ml fluid restriction. Alarm for safety. Follow up:
--- NOTE | 2017-04-06 13:24 | NUR ---
D: TR progress note for 04/06/17. I: Pt seen for 2 units 1100 for community integration skills building, coping strategies, safety awareness and discharge planning. R: Pt seen for functional skills building working on community integration skills, safety and family training in anticipation for discharge back into community with family. Pt's daughter present for session. Application for handicapped parking permit completed with pt independent on recall with information on date of , address and phone number with details given on where to mail and how to utilize once obtain. Education and review done on energy conservation in community setting, safety when traveling long distances in vehicle, safety with inclement weather (hot/cold) and slick surfaces. Discussed use of bathroom when out with opposite sex and no unisex bathroom available. Education and review done on not operating motorized vehicle until receiving Physician's approval and reviewed community safety concerns. Pt had not questions or concerns at this time. P: Will discharge to SNF tomorrow, 04/06/17.
--- NOTE | 2017-04-06 14:41 | NUR ---
Significant Event: Patient alert and oriented. Left sided weakness. Takes medications with applesauce. Fluid restriction. Follow up: Will be going to [place] tomorrow.
--- NOTE | 2017-04-07 03:16 | NUR ---
Significant Event : DENIES PAIN. UP TO BATHROOM WIUTH WHEELCHAIR AND 1 ASSIST. TRANSFERS FAIR. DO NO TLEAVE ALONE IN BATHROOM PATIENT DOES NOT ALWAYS WAIT FOR STAFF BEFORE ATTEMPTING TO GET UP. HAS RIGHT SIDED WEAKNESS. RT FACIAL DROOP. BEING DISMISSED TODAY WITH FAMILY AND GOING TO PRISON IN [place]. PLAN TO LEAVE AT 9:30 AM. ON FLUID RESTRICTION. Follow up:
[2017-04-07 04:28] LABS: ALBUMIN 3.2 gm/dL (3.5-5.0); ALK PHOS 42 IU/L (33-138); ALT 24 IU/L (12-78); AST 17 IU/L (10-40); BLOOD UREA NITROGEN 13 mg/dL (6-24); CALCIUM 8.5 mg/dL (8.5-10.5); CHLORIDE 103 mMol/L (96-110); CO2 25 mMol/L (22-32); CREATININE 0.6 mg/dL (0.5-1.1); ESTIMATED GFR (MDRD EQUATION) > 60; SODIUM 136 mMol/L (135-145); TOTAL BILIRUBIN 0.3 mg/dL (0.0-1.5); TOTAL PROTEIN 6.3 g/dL (6.0-8.4)
--- NOTE | 2017-04-07 08:51 | NUR ---
Patient alert and oriented X 3. Room air. Vitals 124/60, HR 65, 02 97% Temp. 97.4, RR 18. Patient does have facial droop to left side. Left side hand grasp slightly weaker then right side. Lifts arm with no difficulty. Left leg, slightly weaker. Denies any numbness or tingling. Patient is a 1 assist stand pivot. Small bowel movement this shift. Pleasant and cooperative with cares.
--- NOTE | 2017-04-10 09:56 | NUR ---
D: Supervisor Twisting Department Team Conference Follow up for 04/06/17 and discharge note for 04/07/17 I: Input from patient/family R: Met with: patient, daughter Michelle, Dr. Hwang, Gilda MACARIOW Discussed rehab plan, patient progress, discharge plan and estimated length of stay of d/c planned on 04/07/17 to [facility] in [place]. Patient/Family Preference: patient is in agreement. Anticipated discharge disposition: [facility] Education completed: education completed prior to d/c. Assessment/Recommendation: Team recommends d/c to SNF. P: Case Coordination: Nicky is a 72 year old woman admitted after a stroke. She has good family support. Plan is for patient to d/c on 04/07/17 to [facility]. Family is transporting. ID screen completed. Will call patient next week to see how she is doing post discharge.
== END 2017-04-07 10:15 | DRG 65 ==
LOC: GIRP 09:58
PROVIDERS: Internal Medicine; Neurological Surgery; Physical Medicine & Rehabilitation; Physician Assistant; ADMIT Orthopaedic Surgery
PROC: F06Z3ZZ Aphasia Treatment (ICD-10-PCS; principal; 2017-02-24)
PROC: F00ZJWZ Instrumental Swallowing and Oral Function Assessment using Swallowing Equipment (ICD-10-PCS; principal; 2017-02-24)
PROC: F08Z2FZ Grooming/Personal Hygiene Treatment using Assistive, Adaptive, Supportive or Protective Equipment (ICD-10-PCS; principal; 2017-02-24)
PROC: F07Z9FZ Gait Training/Functional Ambulation Treatment using Assistive, Adaptive, Supportive or Protective Equipment (ICD-10-PCS; principal; 2017-02-24)
DX: I61.0 Nontraumatic intracerebral hemorrhage in hemisphere, subcortical (principal); G81.94 Hemiplegia, unspecified affecting left nondominant side; J44.9 Chronic obstructive pulmonary disease, unspecified; E87.1 Hypo-osmolality and hyponatremia; R47.01 Aphasia; R29.810 Facial weakness; H53.9 Unspecified visual disturbance; K21.9 Gastro-esophageal reflux disease without esophagitis; E78.5 Hyperlipidemia, unspecified; Z74.1 Need for assistance with personal care; F32.9 Major depressive disorder, single episode, unspecified; M81.0 Age-related osteoporosis without current pathological fracture; I10 Essential (primary) hypertension; R32 Unspecified urinary incontinence; K59.00 Constipation, unspecified
CPT/HCPCS: J1650